=== PATIENT | male | born 1940 ===

== ENCOUNTER 2017-07-13 10:49 | Inpatient (IN) | payer MEDICARE, OTHER ==
[2017-07-13] MEDS ORDERED: NS 0.9% 1000 ML* 1,000 ML IV ONE (10:50)
[2017-07-13] MEDS ORDERED: Metoprolol Tartrate IV* 1 MG/ML 5 ML VIAL IV ONE ×4 (10:57→11:43)
[2017-07-13] MEDS ORDERED: niCARdipine 0.1MG/ML IVPREMIX* 20 MG/200 ML BAG IV SCH (11:00)
[2017-07-13] MEDS ORDERED: Alteplase* 100 MG VIAL ONE (11:09)
[2017-07-13] MEDS ORDERED: Iodixanol* (CONTRAST) 320 MG/ML 100 ML SDV IV ONE (11:14)
[2017-07-13] MEDS ORDERED: Metoprolol Tartrate IV* 1 MG/ML 5 ML VIAL ONE ×2 (11:29→11:39)
[2017-07-13] MEDS ORDERED: Alteplase* 100 MG VIAL IV ONE ×2 (11:31)
[2017-07-13] MEDS ORDERED: NICARDIPINE ONE (11:31)
[2017-07-13 11:43] LABS: ABS Basophils 0.1 10^3/ul (0-0.2); ABS Eosinophils 0 10^3/ul (0-0.6); ABS Lymphocytes 0.9 10^3/ul (1.0-4.8); ABS Monocytes 0.5 10^3/ul (0-0.8); ABS Nucleated RBC 0 10^3/ul; Eosinophil % 0.2 % (0-6); Hematocrit 51 % (42-52); Hemoglobin 17.4 g/dl (14.0-18.0); Lymphocyte % 10.6 % (25-47); Mean Corpuscular HGB Conc 34 g/dl (31-36); Mean Corpuscular Hemoglobin 30 pg (27-31); Mean Corpuscular Volume 89 fL (80-94); Mean Platelet Volume 6.9 um3 (7.4-10.4); Nucleated Red Blood Cells % 0; Platelet Count 199 10^3/ul (150-450); Red Blood Count 5.79 10^6/ul (4.0-5.4); Red Cell Distribution Width 14 % (10.5-15); White Blood Count 8.5 10^3/ul (3.5-10.8)
--- NOTE | 2017-07-13 11:43 | RAD ---
Indication: Left hemiparesis. Contrast: Administered 80.1 ml of VISIPAQUE 320 mg/ml CTA of the neck and head was performed after IV contrast administration. Coronal and sagittal reconstructed images were obtained. Noncontrast CT of the head was also performed. Ventricular structures are midline. No midline shift is noted. Periventricular lucency consistent with chronic ischemic White matter change is noted. No intracranial mass or hemorrhage is noted. The aortic arch demonstrates atherosclerosis in the descending aorta. Left common carotid artery demonstrates no intimal wall thickening. Right common carotid artery demonstrates no intimal wall thickening. Calcific plaque is noted in the left internal carotid artery origin. Less than 50% stenosis is identified. Minimal calcific plaque is noted in the right carotid bulb with less than 50% stenosis. The internal carotid arteries in the neck demonstrates tortuous proximal internal carotid artery. No evidence of branch occlusion is noted. No aneurysmal dilatation is noted. No evidence of carotid artery dissection is noted. The vertebral arteries demonstrate right vertebral artery to be unremarkable. There may be a stenosis at the ostia of the left vertebral artery. No evidence of vertebral artery dissection is noted. The intracranial circulation demonstrates intracavernous portion of the internal carotid arteries to be unremarkable. The anterior and middle cerebral arteries are unremarkable. The basilar artery and posterior cerebral arteries are unremarkable. No branch occlusion is identified. No evidence of branch occlusion or aneurysmal dilatation is noted in the anterior or posterior circulation. The lung apices are otherwise unremarkable. Evaluation of the soft tissues of the neck demonstrates no significant adenopathy. Multiple periapical abscesses are noted in the remaining dentition. IMPRESSION: There is atherosclerosis of the descending thoracic aorta at the level of the aortic arch. Atherosclerosis is noted in the carotid bulb bilaterally. The origin of left vertebral artery is not well demonstrated and a stenosis at the origin of the left vertebral artery cannot BE excluded. No evidence of internal carotid artery stenosis or dissection is noted. Intracranial circulation demonstrates no evidence of aneurysmal dilatation or branch occlusion.
[2017-07-13 11:56] LABS: INR 0.95 (0.77-1.02)
[2017-07-13 11:58] LABS: EGFR Non-African American 54.5 (>60)
--- NOTE | 2017-07-13 12:18 | RAD ---
Indication: Neurologic changes. Single frontal view of the chest performed at 1200 hours was reviewed. No prior study is available for comparison. No mediastinal shift is noted. Heart is of normal size and configuration. Lung harrison appear clear. IMPRESSION: NO ACTIVE CARDIOPULMONARY DISEASE IS NOTED.
[2017-07-13 12:25] LABS: Urine Appearance Clear; Urine Blood 1+ (Negative); Urine Color Straw; Urine Ketones Negative (Negative); Urine Protein Negative (Negative); Urine Urobilinogen Negative (Negative)
[2017-07-13] MEDS ORDERED: Acetaminophen TAB* 325 MG PO PRN (13:41)
[2017-07-13] MEDS ORDERED: Magnesium Hydroxide LIQ* 30 ML UDC PO PRN (13:42)
--- NOTE | 2017-07-13 14:06 | HP ---
H&P (Free Text) History and Physical: CRITICAL CARE MEDICINE DATE: 07/13/17 TIME: 1330 PRIMARY CARE PROVIDER: None - has not been to providers in probably 30 years REFERRING PROVIDER: Joaquin REASON/CHIEF COMPLAINT: cva s/p tpa HISTORY OF PRESENT ILLNESS: 76 M who lives with girlfriend was in his yard today and felt as if his left knee was giving out. GF called pts son who came to see pt as he was refusing to seek attention after then falling with inability to stand up. May have fallen 3 times from report I got. Was seen by neurology in ED and underwent cva workup with tpa given. BP had been high and was blunted with doses of metoprolol and then started on nicardipine gtt. NIH went from 4 to 1 from reports. CTA without signs of vessel occlusions. ICU asked to admit for his continued care needs. REVIEW OF SYSTEMS: As per HPI. Pt denies fever, chills, weight changes, sob, cough, cp, abd pain (does admit to chronic abd hernia), bowel or swallowing issues, dysuria, or usual difficulties with ambulation or speech. PAST MEDICAL HISTORY: As per HPI but has not been to providers "in decades" per family. He is obese, oa with left knee surgery decades ago, umbilical hernia, and likely htn, ckd 3 sec to uncontrolled htn and underlying atherosclerotic disease. MEDICATIONS: No outpt rx, but takes aspirin once in awhile for pain, and took 81mg last pm. ALLERGIES: NKDA SOCIAL HISTORY: Reviewed. lives with gf. retired from [employer]. denies tob, quit social etoh many years ago FAMILY HISTORY: Noncontributory at present. PHYSICAL EXAM: Vital Signs: Reviewed. Neurologic: awake, communicating, nonfocal on exam. no drift. HEENT: only 2 poorly kept teeth left, mmm, tongue midline., no bruits. Cardiovascular: reg, s1, s2 Respiratory: ctab Abdomen: obese, midline umbilical hernia Extremities: warm, no edema; scarring of left knee Access: piv LABS: Reviewed. IMAGING: Reviewed. MEDICATIONS: Reviewed. ASSESSMENT: 76 M CVA s/p tpa with improvement HTN urgency Underlying uncontrolled htn CKD 3 Risk factor/medical workup needed PLAN: Neurologic: neurology has evaluated and post tpa now with improvement. standards of care. order mri. ct tomorrow. likely asa from there but can allow neuro to f/u plans. icu post tpa neurochecks. Cardiovascular: perfusing. vol status ok but post iv dye and htn uncontrolled. receiving some fluid with cardene gtt currently. add norvasc and see if we can come off gtt while keeping sbp about 140-170 for now. will need further htn workup and outpt rx needs and provider for such. cva tte workup. lipds. Respiratory: lucian fine. no o2 needs. no distress. Gastrointestinal: bedside swallow eval and then ok for diet. recommend outpt dental appt. Renal/Metabolic: f/u renal function tomorrow and uout. Infectious Disease: no abx need Hematology: stable. hold off on antiplt till post 24h Endocrine: f/u Hba1c Musculoskeletal: pt eval as needed for cva Psych/Social: family at bedside and pt expressed understanding of plans. social eval and outpt provider set up, rx etc. Supportive and preventative care as ordered. Vaccine: f/u his desire and needs SUP: po VTE prophylaxis: scds Disposition: ICU overnight Code Status: Full Critical Care Time: 45min FBolivar Desai DO
[2017-07-13] MEDS: amLODIPine TAB* 5 MG PO SCH (15:01)
[2017-07-13] MEDS ORDERED: Perflutren Lipid Microsphere* 3 ML VIAL ONE (15:32)
[2017-07-13] MEDS: niCARdipine 0.1MG/ML IVPREMIX* 20 MG/200 ML BAG IV SCH (17:41)
--- NOTE | 2017-07-13 18:43 | ECHO ---
Patient: ОЛЕГ HOLT [facility] Rec#: [id number] : 1940 Date: 07/13/2017 Age: 76y Height: 172.72 cm / 68.0 in Weight: 97.07 kg / 213.9 lbs Sex: M BSA: 2.1 Room#: ICU-3 Admit Date#: 07/13/2017 Type: Inpatient Referring: Eugenio Desai Reading: Shekhar Carrion MD Banquet Chef: Tina Turner RDCS Transthoracic Echocardiogram Indication: CVA BP: 166/80 HR: 86 Rhythm: NSR Findings History: CVA with tPA rx today. No medical care in decades per patient, obesity, CKD stage III,HTN. Technical Comments: The study is technically limited due to patient body habitus. Completed at 1628. Left Ventricle: The left ventricular chamber size is normal. Moderate concentric left ventricular hypertrophy is observed. There is a prominent septal knuckle. The left ventricle appears hyperdynamic. The estimated ejection fraction is 60-65%. Abnormal left ventricular diastolic function is observed. Abnormal left ventricular diastolic filling is observed, consistent with impaired relaxation. Left Atrium: The left atrium is mildly dilated. Right Ventricle: The right ventricular cavity size is normal. The right ventricular global systolic function is normal. Right Atrium: The right atrial cavity size is normal. Aortic Valve: The aortic valve is trileaflet. There is no evidence of aortic valve thickening. There is mild aortic regurgitation. There is no evidence of aortic stenosis. Mitral Valve: The mitral valve leaflets are mildly thickened. There is no evidence of mitral regurgitation. There is no evidence of mitral stenosis. Tricuspid Valve: The tricuspid valve leaflets are normal. There is no evidence of tricuspid valve regurgitation. Unable to estimate the right ventricular systolic pressure. There is no tricuspid stenosis. Pulmonic Valve: There is no evidence of pulmonic regurgitation. There is no pulmonic stenosis. Pericardium: A pericardial fat pad is visualized. Aorta: There is moderate dilatation of the ascending aorta. The aortic arch is not well visualized. There is moderate dilatation of the aortic root. Pulmonary Artery: The main pulmonary artery appears normal. Venous: The venous system is not well visualized. Contrast: Definity was used to optimize study. A total of 4.5 ml used. Intravenous contrast was used to enhance endocardial border definition. Summary: There was not any prior study for comparison. Conclusions Moderate concentric left ventricular hypertrophy is observed. The left ventricle appears hyperdynamic. Abnormal left ventricular diastolic filling is observed, consistent with impaired relaxation. The left atrium is mildly dilated. There is mild aortic regurgitation. There is moderate dilatation of the ascending aorta. There is moderate dilatation of the aortic root. Measurements Name Value Normal Range RVIDd (AP) 2D 2.1 cm (0.9 - 2.6) RVDdMajor (2D) 3.2 cm (2.2 - 4.4) RAd ISD 4CH 4.8 cm (3.4 - 4.9) RA (A4C)W 3 cm (2.9 - 4.6) IVSd (2D) 1.5 cm (0.6 - 1) LVPWd (2D) 1.5 cm (0.6 - 1) LVIDd (2D) 3.9 cm (3.6 - 5.4) LVIDs (2D) 2.6 cm - LV FS (2D) 33 % (25 - 45) Aortic Annulus 2.1 cm (1.4 - 2.6) Ao root diameter (2D) 4.3 cm (2.1 - 3.5) Ascending Ao 4.2 cm (2.1 - 3.4) LA dimension (AP) 2D 3.9 cm (2.3 - 3.8) LAd ISD 4CH 4.7 cm (2.9 - 5.3) LA ISD 4CH W 3.6 cm (2.5 - 4.5) Name Value Normal Range LA ESV SP 4CH (A/L) 24 ml - LA ESV SP 2CH (A/L) 49 ml - LA ESV BP (A/L) 40 ml - LA ESV BP (A/L) index 19.1 ml/m2 - LA ESV SP 4CH (MOD) 21 ml - LA ESV SP 2CH (MOD) 46 ml - Name Value Normal Range MV E-wave Vmax 0.8 m/sec - MV deceleration time 116 msec - MV A-wave Vmax 1.2 m/sec - MV E:A ratio 0.7 ratio - LV septal e' Vmax 0.05 m/sec - LV lateral e' Vmax 0.13 m/sec - LV E:e' septal ratio 16 ratio - LV E:e' lateral ratio 6.15 ratio - Name Value Normal Range AV Vmax 1.6 m/sec - AV VTI 26.8 cm - AV peak gradient 10.18 mmHg - AV mean gradient 3.93 mmHg - LVOT Vmax 1.2 m/sec - LVOT VTI 21.9 cm - LVOT peak gradient 5.34 mmHg - LVOT mean gradient 2.46 mmHg - AR PHT 371 msec - AR peak gradient 16.81 mmHg - Name Value Normal Range PV Vmax 1.4 m/sec - PV peak gradient 7.41 mmHg -
--- NOTE | 2017-07-13 21:16 | RAD ---
HISTORY: MRI clearance. COMPARISON: None. FINDINGS: Frontal and lateral views of the orbits. There is no radiopaque foreign body attributable to the orbits. The orbital rims are intact. The sinuses are clear. The zygomatic arches are normal. IMPRESSION: No radiopaque foreign body attributable to the orbits.
--- NOTE | 2017-07-13 22:14 | RAD ---
HISTORY: Left facial droop and left leg weakness COMPARISONS: None TECHNIQUE: The following sequences were obtained of the head: Sagittal T1-weighted images, axial T2-weighted images, axial FLAIR images, axial susceptibility weighted images, axial T1-weighted images. Additionally, axial diffusion-weighted images were obtained with calculated apparent diffusion coefficients.. FINDINGS: HEMORRHAGE/INFARCT: There is focal increased signal measuring 5 mm at the right thalamus. MASSES/SHIFT: There is no mass or shift. EXTRA-AXIAL SPACES/MENINGES: There are no extra-axial fluid collections. SULCI AND VENTRICLES: There are symmetrical involutional changes bilaterally. CEREBRUM: 5 mm hyperattenuating focus on diffusion-weighted imaging at the right thalamus is consistent with a focal infarction. This corresponds to a focus of increased signal on FLAIR imaging. On T2-weighted imaging there is diffuse periventricular and subcortical white matter increased signal. BRAINSTEM: There are no focal parenchymal abnormalities. CEREBELLUM: There are no focal parenchymal abnormalities. The cerebellar tonsils are normal in size and position. SELLA: The sella is normal. PINEAL: The pineal region is clear. CP ANGLE/TEMPORAL BONES: The labyrinthine structures are grossly normal. VESSELS: Normal flow-voids are noted within the visualized vertebral vasculature. DIFFUSION ABNORMALITIES: There are no diffusion abnormalities. PARANASAL SINUSES/MASTOIDS: There is dependent layering fluid at the left maxillary sinus. ORBITS: The orbits are unremarkable. BONES AND SOFT TISSUE: No bone or soft tissue abnormalities are noted. IMPRESSION: THERE IS EVIDENCE OF A NEW 5 MM FOCAL INFARCTION AT THE RIGHT THALAMUS ON A BACKGROUND OF CHRONIC MICROVASCULAR DISEASE AND INVOLUTIONAL CHANGES.
--- NOTE | 2017-07-13 22:41 | CONS ---
NEUROLOGY CONSULTATION REPORT: DATE OF CONSULT: 07/13/17 CONSULTING PHYSICIAN: Dr. Jose Nuñez. REASON FOR CONSULT: Neurology was consulted for evaluation of stroke. Code Alexis was activated. CHIEF COMPLAINT: Left-sided weakness. HISTORY OF PRESENT ILLNESS: Mr. Kahlil Lanier is a 76-year-old right-handed man , who had left-sided weakness that started at 8-8:15 a.m. this morning. The patient woke up at 6 o'clock in normal state of health. At 7:30, he was last seen normal by his spouse. Other than complaining of bilateral knee pain and his usual imbalance due to knee pain, he had no focal deficits. The patient was feeding the birds and cats when suddenly he fell. He did not hit his head. He did not lose consciousness. He then tried to get up, but he was having trouble standing. This was at 8:15 a.m. He called out for his who contacted EMS. The spouse reported that the patient has chronic memory problems and keeps repeating himself. This has been going on for over 6 months. The patient denied any headaches, visual disturbance, or swallowing difficulty. He does endorse gait imbalance since this morning after he had awaken. There was reported fall yesterday, but the family stated that the patient typically falls due to knee pain. This was not unusual for him. He typically is able to stand up and get himself up after a fall. This was not the case this morning. The patient is aspirin naive. The patient has not seen a physician for over 30 years. NIH Stroke Scale: Last known well time 7:30 a.m., time of onset 8 a.m., stroke call was activated at 10:50 a.m., I assessed the patient at 10:55 a.m., decision to proceed with tPA 11:30 a.m., tPA was not given immediately given the patient's uncontrolled blood pressure despite treating him with metoprolol, labetalol 10 mg, labetalol 5 mg, and then eventually starting him on a nicardipine drip which brought down his blood pressure within the recommended range for IV tPA which was approximately 177/89 at that time. NIH Stroke Scale score was 6 for left facial droop 1, left arm drift 1, left leg drift 2, limb ataxia on the left due to motor ataxia 1, and lastly dysarthria 1. NIH Stroke Scale was taken at 10:55 a.m. PAST MEDICAL HISTORY: The patient has reported untreated hypertension. PAST SURGICAL HISTORY: He has history of arthroscopy in the knees. MEDICATIONS: He is not taking any medications at home. ALLERGIES: No known drug allergies. FAMILY HISTORY: He denied any family history of stroke or seizures. SOCIAL HISTORY: The patient is retired. He used to smoke pipe, but stopped more than 3 years ago. He denied alcohol use. He lives with his spouse. REVIEW OF SYSTEMS: A 14-point review of systems was obtained and otherwise negative except for what was mentioned in the HPI. PHYSICAL EXAM: Vitals: Currently pulse of 86, respiratory rate of 21, oxygen saturation 94% on room air, blood pressure 177/103. General: Well-nourished, well- developed overweight man, in no acute distress. He is very pleasant. Head: Normocephalic without obvious abnormalities. Atraumatic. Eyes: Conjunctivae/corneas are clear. Neck: Supple and symmetrical. No carotid bruit. Lungs are clear to auscultate bilaterally. Nonlabored breathing. Cardiovascular: Regular rhythm. Normal S1, S2. Radial pulses are palpable. Extremities: Normal range of motion with no cyanosis. No hammertoes or high arches. Skin: No skin lesions or lacerations. Psych: Affect is broad and normal mood. He is easy to establish rapport. Mental Status: Awake, alert, and oriented to person, place, time, and general circumstances. He has mild spastic dysarthria. Cranial Nerves: Normal confrontation bilaterally. Pupils are mid range and reactive to light. Normal consensual response. Extraocular muscles are intact. Sensation is intact on forehead, cheeks, and jaw region bilaterally. He has a left facial droop. He is able to hear throughout the history process. Symmetric palatal elevation. There is normal strength against resistance for shoulder shrug. Tongue is symmetrical and midline with no atrophy. Motor: No abnormal movement. Positive for pronator drift on the left upper extremity. He has got normal bulk and tone throughout. No fasciculation. Shoulder abduction is 5 on the right and 4 on the left. Elbow flexion 5 on the right and 4 on the left as well as elbow extension 5/4. Otherwise, 5/5 throughout the upper and lower extremities except for 4/5 in the left hip flexion. Reflexes: Right/left, brachioradialis 2/2, biceps 2/2, triceps 2/2, patella 1/1, ankle 0/0, plantar flexor/flexor. He has external rotation of the left lower extremity. Sensation is intact to light touch throughout. Normal vibration and proprioception at the great toes. Coordination: He has got motor dysmetria on the left upper extremity. He has reduced rapid alternative movements on the left. Gait and station: He was falling towards the left side when he stood up to measure his weight. The patient's weight is 260 pounds. DIAGNOSTIC STUDIES/LAB DATA: Laboratory finding: WBC of 8.5, hemoglobin of 17 , hematocrit of 51, platelets of 199. INR of 0.95, aPTT of 30. Sodium of 139, potassium 3.6, chloride 108, carbon dioxide 24, BUN is 16, creatinine is 1.28, lactic acid is 2.1, glucose is 101. The patient had Accu-Chek of 89 upon arrival. Urinalysis shows no evidence of dysuria. Head CT without contrast showed no evidence of acute intracranial process. He has a small hypodensity in the left basal ganglia region. This is suggestive of an old lacunar infarct. The CTA was personally reviewed by me. There is atherosclerosis of the descending thoracic aorta at the level of the aortic arch. There is atherosclerosis noted at the carotid bulb bilaterally. The origin of the left vertebral artery was not well demonstrated and stenosis at the origin of the left vertebral artery cannot be excluded. There is no evidence of internal carotid artery stenosis or dissection. Intracranial circulation demonstrates no evidence of aneurysm, dilatation, or branch occlusion. There is decreased flow of the left vertebral artery that I saw, but there is a prominent right vertebral artery. ASSESSMENT: 1. Mr. Kahlil Lanier is a 76-year-old man, who has not seen a primary care physician for decades, who presented with acute-onset slurred speech, left hemiparesis, and fall. I suspect the patient is having lacunar stroke involving the right lenticulostriate branches or the right pontine perforators given his extremely elevated blood pressure upon arrival. The mechanism of stroke probably small vessel distal occlusion due to chronic hypertension that is untreated. Risk factors, age and hypertension, NIH Stroke Scale of 6. He was deemed a candidate for IV tPA. The patient received tPA within 60 minutes of arrival, but unfortunately within a 4-1/2-hour window. The delay in tPA was due to trying to control his blood pressure as it was significantly elevated upon presentation. He is not a candidate for mechanical thrombectomy given that he has no large vessel occlusion on CTA. 2. Hypertensive emergency. 3. Mild cognitive impairment so stated by family members. The patient is at risk for vascular dementia. RECOMMENDATION: The patient received IV tPA within the 4-1/2-hour window, within 60 minutes of arrival to our emergency department. Admit to the MICU for close post tPA monitoring for the next 24 hours. Please use the post tPA vitals and neuro checks as recommended for which he will be receiving frequent q.15-minute neuro check for the next few hours, please use the protocol as documented. Please order an MRI of the brain without contrast. This can be done 24 hours from the time of the tPA; this way, we do not have to do a repeat CT in 24 hours. Please order a 2D transthoracic echo to evaluate for any source of thrombus. Place the patient on telemetry to evaluate for arrhythmias. Lipid panel was obtained and his LDL was elevated at 141 with total cholesterol of 211. Please start high-intensity atorvastatin 80 mg nightly. Please obtain vitamin B12 and hemoglobin A1c as well as a TSH. Hold all antiplatelet and anticoagulation for 24 hours. SCDs for DVT prophylaxis. He is not a candidate for anticoagulation therapy because there is no known atrial fibrillation yet that has been discovered. Keep up permissive blood pressure control, but treat systolic blood pressure greater than 180 or diastolic blood pressure greater than 110. Please consult PT/OT/FULLERETTE to evaluate and treat. Bedside swallow evaluation needs to be done. We discussed secondary stroke measures with the family. Do not place the urinary catheter unless there is evidence of urinary retention. Before administrating tPA, I personally discussed the risks and benefits to tPA therapy. I informed the patient's family as well as both kids, Gerald and Felix, that Mr. Kahlil Lanier is having stroke and tPA is given to hopefully dissolve the blockage. There are risks for this procedure, which include bleeding in the brain 6.4%, allergic reaction, coma, or (3%). Probability of success with the procedure, the blockage dissolved and blood flow is restored in 30% increasing the chance of minimal or no disability from stroke within 3 months and/or full recovery. We discussed alternative to the procedure which is treatment with oxygen and IV fluids and that the prognosis, if the tPA is not done, possibly if the condition worsening and more permanent damage or even . I informed them that the Federal Drug Administration and the package insert from the drug family life counselor indicate that tPA treatment should be administered within 3 hours after the onset of the stroke. However, the [place] [employer] recently indicated that tPA is useful/effective/ beneficial if administered to eligible patients who can be treated in the time period of 3 to 4-1/2 from the onset of the stroke. The patient and the patient' s family consented to the IV tPA within the 4-1/2 hours and we proceeded with the infusion. All questions were answered to the best of my abilities. [id number]/[facility] #: [id number] [facility]
[2017-07-14] MEDS: niCARdipine 0.1MG/ML IVPREMIX* 20 MG/200 ML BAG IV SCH ×3 (00:28→12:29)
[2017-07-14] MEDS: amLODIPine TAB* 5 MG PO SCH (08:02)
[2017-07-14 09:48] LABS: Hematocrit 47 % (42-52); Hemoglobin 16.3 g/dl (14.0-18.0); Mean Corpuscular HGB Conc 35 g/dl (31-36); Mean Corpuscular Hemoglobin 31 pg (27-31); Mean Corpuscular Volume 89 fL (80-94); Platelet Count 146 10^3/ul (150-450); Red Blood Count 5.31 10^6/ul (4.0-5.4); Red Cell Distribution Width 14 % (10.5-15)
[2017-07-14 10:12] LABS: EGFR Non-African American 78.8 (>60)
--- NOTE | 2017-07-14 12:44 | RAD ---
Indication: Ischemic stroke post TPA. Follow-up. Comparison: July 13, [address] Technique: Noncontrast CT vertex of skull through foramen magnum. Report: No intra or extra-axial hemorrhage evident. Mild prominence of the cerebral sulci reflecting atrophy. Proportional mild enlargement of the ventricles. Patent basal cisterns. Decreased density in the periventricular and subcortical white matter while non-specific is most likely due to chronic microangiopathy. Negative for lara matter white matter obscuration. Unremarkable orbital contents. No suspicious abnormality of the calvarium or skull base. Mucosal thickening at the floor of the LEFT maxillary sinus. Unremarkable scalp. IMPRESSION: No evidence for intracranial hemorrhage post TPA. Negative for mass effect. Mild involutional change and stigmata of chronic small vessel ischemic disease.
[2017-07-14] MEDS: Aspirin EC TAB* 81 MG TAB.EC PO SCH (14:51)
[2017-07-14] MEDS: Lisinopril TAB* 10 MG PO SCH (14:51)
[2017-07-14] MEDS: Atorvastatin* 20 MG TAB PO SCH (17:12)
--- NOTE | 2017-07-14 17:31 | PN ---
Subjective Date of Service: 07/14/17 Interval History: Mr. Holt was seen and examined earlier today. Reports feeling much better, wants to go home. Denies any left sided weakness, numbness or visual changes. Had his 24-hours post tPA head CT with no evidence of bleeding. His BP fluctuates, but seems to be well controlled with calcium channel tim drip. Patient has no complaints. Spoke with Dr. Desai earlier, patient may be transferred later this afternoon to telemetry. Drip will be d/c'ed to initiate PO agents to control BP. Seen by neurology for consultation as well. Family History: Unchanged from Admission Social History: Unchanged from Admission Past Medical History: Unchanged from Admission Objective Active Medications: Acetaminophen (Tylenol Tab*) 650 mg PO Q6H PRN PRN Reason: FEVER/PAIN Amlodipine Besylate (Norvasc Tab*) 10 mg PO DAILY [facility] Last Admin: 07/14/17 08:02 Dose: 10 mg Aspirin (Aspirin Ec Tab*) 81 mg PO DAILY [facility] Last Admin: 07/14/17 14:51 Dose: 81 mg Atorvastatin Calcium (Lipitor*) 20 mg PO 1700 [facility] Last Admin: 07/14/17 17:12 Dose: 20 mg Lisinopril (Prinivil Tab*) 10 mg PO DAILY [facility] Last Admin: 07/14/17 14:51 Dose: 10 mg Magnesium Hydroxide (Milk Of Magnaurelio Liq*) 30 ml PO Q6H PRN PRN Reason: DYSPEPSIA Vital Signs - 8 hr 07/14/17 07/14/17 07/14/17 09:31 09:45 10:00 Temperature Pulse Rate 103 98 99 Respiratory 14 22 23 Rate Blood Pressure 168/95 150/80 (mmHg) O2 Sat by Pulse 96 96 97 Oximetry 07/14/17 07/14/17 07/14/17 10:01 10:15 10:30 Temperature Pulse Rate 93 97 111 Respiratory 21 24 Rate Blood Pressure 146/82 167/93 158/100 (mmHg) O2 Sat by Pulse 95 96 97 Oximetry 07/14/17 07/14/17 07/14/17 10:45 11:00 11:01 Temperature Pulse Rate 100 99 101 Respiratory 16 20 20 Rate Blood Pressure 148/80 119/76 (mmHg) O2 Sat by Pulse 97 97 98 Oximetry 07/14/17 07/14/17 07/14/17 11:16 11:30 11:45 Temperature Pulse Rate 107 97 100 Respiratory 23 20 24 Rate Blood Pressure 117/82 154/86 151/89 (mmHg) O2 Sat by Pulse 97 98 98 Oximetry 07/14/17 07/14/17 07/14/17 12:00 12:23 12:30 Temperature 98.1 F Pulse Rate 99 100 99 Respiratory 20 21 20 Rate Blood Pressure 139/97 161/82 155/87 (mmHg) O2 Sat by Pulse 97 97 97 Oximetry 07/14/17 07/14/17 07/14/17 12:45 13:00 14:00 Temperature Pulse Rate 96 96 97 Respiratory 30 21 19 Rate Blood Pressure 141/80 146/84 (mmHg) O2 Sat by Pulse 97 97 97 Oximetry 07/14/17 07/14/17 07/14/17 14:14 14:15 14:30 Temperature Pulse Rate 97 98 94 Respiratory 25 21 35 Rate Blood Pressure 126/73 134/83 162/78 (mmHg) O2 Sat by Pulse 97 97 96 Oximetry 07/14/17 07/14/17 07/14/17 14:45 15:00 15:01 Temperature Pulse Rate 99 95 91 Respiratory 23 20 22 Rate Blood Pressure 164/86 155/78 (mmHg) O2 Sat by Pulse 97 98 97 Oximetry 07/14/17 07/14/17 07/14/17 15:30 16:00 16:30 Temperature 98.3 F Pulse Rate 89 95 Respiratory 19 18 17 Rate Blood Pressure 174/77 186/93 (mmHg) O2 Sat by Pulse 97 97 Oximetry 07/14/17 07/14/17 07/14/17 17:00 17:01 17:02 Temperature Pulse Rate 100 97 98 Respiratory 23 19 24 Rate Blood Pressure 175/100 176/91 (mmHg) O2 Sat by Pulse 97 98 98 Oximetry Oxygen Devices in Use Now: None Appearance: Appears comfortable and in NAD Eyes: No Scleral Icterus, PERRLA Ears/Nose/Mouth/Throat: Clear Oropharnyx, Mucous Membranes Moist, - - Slight left sided facial droop noted. 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 Contrast: Administered 80.1 ml of VISIPAQUE 320 mg/ml IMPRESSION: There is atherosclerosis of the descending thoracic aorta at the level of the aortic arch. Atherosclerosis is noted in the carotid bulb bilaterally. The origin of left vertebral artery is not well demonstrated and a stenosis at the origin of the left vertebral artery cannot BE excluded. No evidence of internal carotid artery stenosis or dissection is noted. Intracranial circulation demonstrates no evidence of aneurysmal dilatation or branch occlusion. TTE with following Conclusions: Moderate concentric left ventricular hypertrophy is observed. The left ventricle appears hyperdynamic. Abnormal left ventricular diastolic filling is observed, consistent with impaired relaxation. The left atrium is mildly dilated. There is mild aortic regurgitation. There is moderate dilatation of the ascending aorta. There is moderate dilatation of the aortic root. Patient Name: ОЛЕГ HOLT Medical Record#: [id number] Ordering Physician: Eugenio Desai DO Acct.#: [id number] : 1940 Age: 76 Sex: M Location: INTENSIVE CARE UNIT Exam Date: 07/13/17 1337 ADM Status: ADM IN Order Information: MRI BRAIN W/O Accession Number: [id number] CPT: 89903 HISTORY: Left facial droop and left leg weakness COMPARISONS: None IMPRESSION: THERE IS EVIDENCE OF A NEW 5 MM FOCAL INFARCTION AT THE RIGHT THALAMUS ON A BACKGROUND OF CHRONIC MICROVASCULAR DISEASE AND INVOLUTIONAL CHANGES. <Electronically signed by Dav Dyson MD in [place]> 07/13/172210 Dictated By: Dav Dyson MD Dictated Date/Time: 07/13/172210 Transcribed Date/Time: 07/13/172204 Copy to: Assess/Plan/Problems-Billing Assessment: A 76 y/o male who presented to ED with sudden onset of left sided facial droop and weakness, found to have a CVA, s/p tPA, admitted to ICU for close monitoring , with neurological improvement noted, also with underlying uncontrolled and untreated HTN - Patient Problems (1) CVA (cerebral vascular accident) Current Visit: Yes Status: Acute Priority: High Comment: - Neurology consult appreciated - Now s/p tPA, improvement noted, continue neurological checks q4 hrs - Passed swallowing evaluation, resume regular diet - PT/OT starting in AM - Transfer to Tele this PM - Supportive care - ASA 81 mg and Lipitor 20mg daily started (2) Hypertension Current Visit: Yes Status: Acute Comment: - Seems to be better controlled - Off his Ca channel tim drip - Continue Amlodipine and Lisinopril PO (3) DVT prophylaxis Current Visit: Yes Status: Acute Comment: - SCDs for time being (4) Full code status Current Visit: Yes Status: Acute Status and Disposition: Inpatient. Anticipate discharge when medically stable.
--- NOTE | 2017-07-14 20:59 | CONS ---
NEUROLOGY FOLLOWUP NOTE: DATE OF FOLLOWUP: 07/14/17 LOCATION: He is in the intensive care unit, bed 3. HOSPITALIST: MINERVA Yoon CHIEF COMPLAINT: Left-sided weakness. INTERVAL HISTORY: Since yesterday, Mr. Lanier feels well. He said he had difficulty walking yesterday and that is why he came in. He denies problems with his upper extremities or any numbness of his face or change in vision. His MRI of the brain was reviewed. There is an area of brightness on diffusion- weighted imaging in the right border between the posterior limb of the internal capsule and the thalamus. There are some chronic ischemic changes, which are fairly abundant as well. Brain CT today did not reveal any discrete infarctions and no hemorrhages. Transthoracic echocardiogram yesterday revealed some hypertensive changes, but no other significant abnormalities. He has been in sinus rhythm. CT angiogram from yesterday did not reveal any significant intracranial or extracranial stenosis. There was a possibility of stenosis near the origin of the left vertebral artery. MEDICATIONS: Reviewed and he is now on: 1. Atorvastatin 20 mg p.o. q. day. 2. Aspirin 81 mg p.o. q. day. 3. Amlodipine 10 mg p.o. q. day. 4. Lisinopril 10 mg p.o. q. day. 5. Magnesium hydroxide q.6 hours p.r.n. PHYSICAL EXAM: He is overweight. Blood pressure 174/77 most recently, temperature 98.1, heart rate in the 80s to 90s and regular. Respiratory rate 20 , oxygen saturation is 97%. Facial musculature is symmetric. Speech is clear. Eye movements are full. He has a mild left pronator drift. He has mild clumsiness with left hand taps. He has mild leg drift in the left. He has normal strength in the right. Language is fluent. IMPRESSION AND PLAN: Impression is that of a small vessel infarction in the right lenticulostriate region. He was not on any medical therapies and has multiple vascular risk factors. I agree with his current antihypertensive regimen, statin, and aspirin. Dual antiplatelet therapy could be considered for 30 days, but I would not start it now just 24 hours after his tPA. Physical Therapy will assess him tomorrow and I will follow up as well. I explained the situation and results of the studies to Mr. Lanier and his . [id number]/[facility] #: [id number] UMA
[2017-07-15 06:05] LABS: ABS Basophils 0 10^3/ul (0-0.2); ABS Eosinophils 0.1 10^3/ul (0-0.6); ABS Lymphocytes 1.4 10^3/ul (1.0-4.8); ABS Monocytes 0.8 10^3/ul (0-0.8); ABS Neutrophils 5.2 10^3/ul (1.5-7.7); ABS Nucleated RBC 0 10^3/ul; Eosinophil % 1.9 % (0-6); Hematocrit 50 % (42-52); Hemoglobin 17.1 g/dl (14.0-18.0); Lymphocyte % 18.1 % (25-47); Mean Corpuscular HGB Conc 34 g/dl (31-36); Mean Corpuscular Hemoglobin 30 pg (27-31); Mean Corpuscular Volume 88 fL (80-94); Mean Platelet Volume 6.7 um3 (7.4-10.4); Nucleated Red Blood Cells % 0.1; Platelet Count 188 10^3/ul (150-450); Red Blood Count 5.62 10^6/ul (4.0-5.4); Red Cell Distribution Width 14 % (10.5-15); White Blood Count 7.6 10^3/ul (3.5-10.8)
[2017-07-15 06:21] LABS: EGFR Non-African American 68.5 (>60)
[2017-07-15] MEDS: Aspirin EC TAB* 81 MG TAB.EC PO SCH (07:31)
[2017-07-15] MEDS: amLODIPine TAB* 5 MG PO SCH (07:31)
[2017-07-15] MEDS: Lisinopril TAB* 10 MG PO SCH (07:31)
--- NOTE | 2017-07-15 13:16 | PN ---
Subjective Date of Service: 07/15/17 Interval History: Patient was seen and examined at bedside. Reports feeling better overall. Had his PT eval, ambulated with a walker, felt a little unsteady, but denies progressive weakness, numbness or visual changes. He was transferred from ICU to [facility] earlier this AM. Eating his lunch, denies dysphagia or choking sensation. He has no complaints today. Family History: Unchanged from Admission Social History: Unchanged from Admission Past Medical History: Unchanged from Admission Objective Active Medications: Acetaminophen (Tylenol Tab*) 650 mg PO Q6H PRN PRN Reason: FEVER/PAIN Amlodipine Besylate (Norvasc Tab*) 10 mg PO DAILY [facility] Last Admin: 07/15/17 07:31 Dose: 10 mg Aspirin (Aspirin Ec Tab*) 81 mg PO DAILY [facility] Last Admin: 07/15/17 07:31 Dose: 81 mg Atorvastatin Calcium (Lipitor*) 20 mg PO 1700 [facility] Last Admin: 07/14/17 17:12 Dose: 20 mg Lisinopril (Prinivil Tab*) 10 mg PO DAILY [facility] Last Admin: 07/15/17 07:31 Dose: 10 mg Magnesium Hydroxide (Milk Of Magnesia Liq*) 30 ml PO Q6H PRN PRN Reason: DYSPEPSIA Vital Signs - 8 hr 07/15/17 07/15/17 07/15/17 06:00 07:02 08:00 Temperature 99.1 F Pulse Rate 88 87 Respiratory 19 18 21 Rate Blood Pressure 172/88 176/88 (mmHg) O2 Sat by Pulse 97 96 97 Oximetry 07/15/17 07/15/17 07/15/17 08:06 09:32 11:21 Temperature 98.9 F 98.5 F Pulse Rate 87 93 97 Respiratory 22 20 20 Rate Blood Pressure 177/95 159/68 137/80 (mmHg) O2 Sat by Pulse 97 99 98 Oximetry Oxygen Devices in Use Now: None Appearance: Sitting on chair, eating lunch, appears comfortable and in NAD Eyes: No Scleral Icterus, PERRLA Ears/Nose/Mouth/Throat: Clear Oropharnyx, Mucous Membranes Moist Neck: NL Appearance and Movements; NL JVP, Trachea Midline Respiratory: Symmetrical Chest Expansion and Respiratory Effort, Clear to Auscultation Cardiovascular: NL Sounds; No Murmurs; No JVD, RRR Abdominal: NL Sounds; No Tenderness; No Distention Extremities: No Edema, - - 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 Microbiology and Other Data: Microbiology 07/13/17 16:45 Nasal Screen MRSA (PCR)(FERCHO) - Final Nasal Mrsa Not Detected Diagnostic Imaging: . EKG Data: . Assess/Plan/Problems-Billing Assessment: A 76 y/o male who presented to ED with sudden onset of left sided facial droop and weakness, found to have a CVA, s/p tPA, admitted to ICU for close monitoring , with neurological improvement noted, also with underlying uncontrolled and untreated HTN - Patient Problems (1) CVA (cerebral vascular accident) Current Visit: Yes Status: Acute Priority: High Comment: - Neurology consult appreciated - Now s/p tPA, improvement noted, continue neurological checks q4 hrs - Passed swallowing evaluation, resume regular diet - PT/OT starting in AM - Transfered to Tele today - Supportive care - ASA 81 mg and Lipitor 20mg daily started - Per neuro, may start Plavix 75mg tomorrow and continue on it for 1 month after discharge. - He is considering SNF placement for STR depending on how he does with PT (2) Hypertension Current Visit: Yes Status: Acute Comment: - Better controlled now, but still hypertensive in AM - Continue Amlodipine and Lisinopril PO (3) DVT prophylaxis Current Visit: Yes Status: Acute Comment: - SCDs for time being (4) Full code status Current Visit: Yes Status: Acute Status and Disposition: Inpatient. Anticipate discharge when medically stable. Patient is considering short term rehab at SNF upon discharge pending on PT He has a son with Down's syndrome, age 27, very difficult for his to take care of both him and son Will discuss with bilingual social worker would like patient to have as PCP upon discharge since he has known the family for years.
[2017-07-15] MEDS: Atorvastatin* 20 MG TAB PO SCH (16:00)
[2017-07-15] MEDS: Atorvastatin* 80 MG TAB PO SCH (17:35)
[2017-07-16 06:31] LABS: ABS Basophils 0 10^3/ul (0-0.2); ABS Eosinophils 0.2 10^3/ul (0-0.6); ABS Lymphocytes 1.8 10^3/ul (1.0-4.8); ABS Monocytes 1.1 10^3/ul (0-0.8); ABS Neutrophils 5.4 10^3/ul (1.5-7.7); ABS Nucleated RBC 0 10^3/ul; Hematocrit 46 % (42-52); Hemoglobin 15.7 g/dl (14.0-18.0); Lymphocyte % 21.1 % (25-47); Mean Corpuscular HGB Conc 34 g/dl (31-36); Mean Corpuscular Hemoglobin 30 pg (27-31); Mean Corpuscular Volume 88 fL (80-94); Mean Platelet Volume 6.9 um3 (7.4-10.4); Nucleated Red Blood Cells % 0.1; Platelet Count 181 10^3/ul (150-450); Red Blood Count 5.17 10^6/ul (4.0-5.4); Red Cell Distribution Width 14 % (10.5-15); White Blood Count 8.6 10^3/ul (3.5-10.8)
[2017-07-16 06:52] LABS: EGFR Non-African American 58.7 (>60)
[2017-07-16] MEDS: Clopidogrel TAB* 75 MG PO SCH (08:45)
[2017-07-16] MEDS: Lisinopril TAB* 10 MG PO SCH (08:45)
[2017-07-16] MEDS: Aspirin EC TAB* 81 MG TAB.EC PO SCH (08:45)
[2017-07-16] MEDS: amLODIPine TAB* 5 MG PO SCH (08:45)
--- NOTE | 2017-07-16 16:17 | PN ---
Subjective Date of Service: 07/16/17 Interval History: Patient seen and examined. Only complaint is left knee pain which is chronic. Denies headache, paresthesias, fever or chills. No chest pain, no SOB. Family at bedside. Family History: Unchanged from Admission Social History: Unchanged from Admission Past Medical History: Unchanged from Admission Objective Active Medications: Acetaminophen (Tylenol Tab*) 650 mg PO Q6H PRN PRN Reason: FEVER/PAIN Last Admin: 07/15/17 16:00 Dose: 650 mg Amlodipine Besylate (Norvasc Tab*) 10 mg PO DAILY [facility] Last Admin: 07/16/17 08:45 Dose: 10 mg Aspirin (Aspirin Ec Tab*) 81 mg PO DAILY [facility] Last Admin: 07/16/17 08:45 Dose: 81 mg Atorvastatin Calcium (Lipitor*) 80 mg PO 1700 [facility] Last Admin: 07/15/17 17:35 Dose: Not Given Clopidogrel Bisulfate (Plavix Tab*) 75 mg PO DAILY [facility] Last Admin: 07/16/17 08:45 Dose: 75 mg Lisinopril (Prinivil Tab*) 10 mg PO DAILY [facility] Last Admin: 07/16/17 08:45 Dose: 10 mg Magnesium Hydroxide (Milk Of Magnesia Liq*) 30 ml PO Q6H PRN PRN Reason: DYSPEPSIA Multi-Ingredient Liniment/Rub (Rafat Roldan*) 1 applic TOPICAL TID [facility] Vital Signs - 8 hr 07/16/17 07/16/17 11:33 15:23 Temperature 98.8 F 98.3 F Pulse Rate 97 105 Respiratory 16 16 Rate Blood Pressure 143/72 155/75 (mmHg) O2 Sat by Pulse 99 98 Oximetry Oxygen Devices in Use Now: None Appearance: alert, NAD Eyes: No Scleral Icterus, PERRLA Ears/Nose/Mouth/Throat: NL Teeth, Lips, Gums, Mucous Membranes Moist Neck: NL Appearance and Movements; NL JVP, Trachea Midline, No Thyroid Enlargement, Masses Respiratory: Symmetrical Chest Expansion and Respiratory Effort, Clear to Auscultation Cardiovascular: NL Sounds; No Murmurs; No JVD, RRR, No Edema Abdominal: NL Sounds; No Tenderness; No Distention Skin: No Rash or Ulcers Neurological: Alert and Oriented x 3, NL Sensation, NL Gait, NL Muscle Strength and Tone, - - left side facial droop Nutrition: Taking PO's Result Diagrams: 07/16/17 06:00 07/16/17 06:00 Additional Lab and Data: . Microbiology and Other Data: Microbiology 07/13/17 16:45 Nasal Screen MRSA (PCR)(FERCHO) - Final Nasal Mrsa Not Detected Diagnostic Imaging: .Patient Name: ОЛЕГ HOLT Medical Record#: [id number] Ordering Physician: [id number] 1940 Age: 76 Sex: M Location: INTENSIVE CARE UNIT Exam Date: 07/13/171336 ADM Status: ADM IN Order Information: MRI BRAIN W/O Accession Number: [id number] CPT: 04959 HISTORY: Left facial droop and left leg weakness COMPARISONS: None TECHNIQUE: The following sequences were obtained of the head: Sagittal T1- weighted images, axial T2-weighted images, axial FLAIR images, axial susceptibility weighted images, axial T1-weighted images. Additionally, axial diffusion-weighted images were obtained with calculated apparent diffusion coefficients.. FINDINGS: HEMORRHAGE/INFARCT: There is focal increased signal measuring 5 mm at the right thalamus. MASSES/SHIFT: There is no mass or shift. EXTRA-AXIAL SPACES/MENINGES: There are no extra-axial fluid collections. SULCI AND VENTRICLES: There are symmetrical involutional changes bilaterally. CEREBRUM: 5 mm hyperattenuating focus on diffusion-weighted imaging at the right thalamus is consistent with a focal infarction. This corresponds to a focus of increased signal on FLAIR imaging. On T2-weighted imaging there is diffuse periventricular and subcortical white matter increased signal. BRAINSTEM: There are no focal parenchymal abnormalities. CEREBELLUM: There are no focal parenchymal abnormalities. The cerebellar tonsils are normal in size and position. SELLA: The sella is normal. PINEAL: The pineal region is clear. CP ANGLE/TEMPORAL BONES: The labyrinthine structures are grossly normal. VESSELS: Normal flow-voids are noted within the visualized vertebral vasculature. DIFFUSION ABNORMALITIES: There are no diffusion abnormalities. PARANASAL SINUSES/MASTOIDS: There is dependent layering fluid at the left maxillary sinus. ORBITS: The orbits are unremarkable. BONES AND SOFT TISSUE: No bone or soft tissue abnormalities are noted. IMPRESSION: THERE IS EVIDENCE OF A NEW 5 MM FOCAL INFARCTION AT THE RIGHT THALAMUS ON A BACKGROUND OF CHRONIC MICROVASCULAR DISEASE AND INVOLUTIONAL CHANGES. <Electronically signed by Dav Dyson MD in OV> 07/13/172210 Dictated By: Dav Dyson MD Dictated Date/Time: 07/13/172210 Transcribed Date/Time: 07/13/172204 Copy to: 1 of 2 EKG Data: . Assess/Plan/Problems-Billing Assessment: A 76 y/o male who presented to ED with sudden onset of left sided facial droop and weakness, found to have a CVA, s/p tPA, admitted to ICU for close monitoring , with neurological improvement noted, also with underlying uncontrolled and untreated HTN - Patient Problems (1) CVA (cerebral vascular accident) Code(s): I63.9 - CEREBRAL INFARCTION, UNSPECIFIED SNOMED Code(s): 814713718 Comment: - Neurology consult appreciated - S/P tPA on 07/13/17 with improvement of symptoms noted and no bleeding - Contineu neurological checks q4 hrs - No dysphagia - dual antiplatelet therapy for 30 days with plavix and ASA - Optimize lipids with lipitor 20mg daily - PT recommends rehab - (2) CKD (chronic kidney disease) stage 3, GFR 30-59 ml/min Code(s): N18.3 - CHRONIC KIDNEY DISEASE, STAGE 3 (MODERATE) SNOMED Code(s): 617274259 Comment: - bump up in creat again today, continue to monitor - likely r/t longstanding untreated HTN (3) Hypertension Code(s): I10 - ESSENTIAL (PRIMARY) HYPERTENSION SNOMED Code(s): 88999424 Comment: - Off nicardipine drip - Stable on lisinopril and norvasc (4) DVT prophylaxis Code(s): REC0175 - SNOMED Code(s): 174924077 Comment: - SCDs, OOB ad joanne (5) Full code status Code(s): Z78.9 - OTHER SPECIFIED HEALTH STATUS SNOMED Code(s): 452800915 Status and Disposition: DC to STR in AM. Will need follow up with Dr. Womack as an outpatient and Dr. Farrar in 1 month.
--- NOTE | 2017-07-16 16:30 | CONS ---
NEUROLOGY FOLLOWUP NOTE: DATE OF FOLLOWUP: 07/16/17 LOCATION: He is an inpatient in room 441. HOSPITALIST: MINERVA Yoon CHIEF COMPLAINT: Left-sided weakness and clumsiness. INTERVAL HISTORY: Since yesterday, Mr. Lanier feels well. He said he has walked around the nursing unit 2-1/2 times with a walker. He says he would be afraid to fall without it. He is being evaluated or has been evaluated by the [facility] for possible transfer there. He has no new complaints. MEDICATIONS: Reviewed. He is now on: 1. Atorvastatin 80 mg p.o. daily. 2. Aspirin 81 mg p.o. daily. 3. Plavix 75 mg p.o. daily 4. Prinivil 10 mg p.o. daily. 5. Amlodipine 10 mg p.o. daily. PHYSICAL EXAM: He is well nourished and well hydrated. Temperature 98.8, blood pressure most recently 143/72, heart rate in the 90s and regular. Respiratory rate is 16 and oxygen saturation is 99% on room air. Neurological Exam: There is mild flattening of the left nasolabial fold. Speech is clear. Strength is otherwise normal. He has a left pronator drift. He has good resistive strength proximally and distally in the arms otherwise. He has pain with testing about the left knee. He has good strength proximally and distally in the lower extremities, however. [id number] maneuver is clumsy in the left hand and foot taps are very clumsy and slow in the left foot. He has normal coordination on the right. He is alert and oriented and in good spirits. Memory seems intact and language is fluent. DIAGNOSTIC STUDIES/LAB DATA: Today notable for unremarkable CBC. Chemistry profile today notable for a slight bump in his creatinine to 1.2 from 1.05 yesterday. His BUN is up to 25 as well. Glucose is 111 this morning. On the day of admission, his cholesterol was 211, LDL 141. Imaging studies were reviewed in prior notes. 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 He had multiple vascular risk factors and was not addressing any of them, but now they are all being addressed. His blood pressure is under good control and I recommend continuing his current antihypertensive regimen. Recommend dual antiplatelet therapy for 30 days and then switching to antiplatelet monotherapy, probably with Plavix. He is on a high potency statin in an appropriate dose, which will require followup. Presumptively, he will go to a rehab. If he does get discharged, I can see him in my office in followup in about a month to see if any loose ends exist regarding vascular risk factor control and to make sure he has transitioned to antiplatelet monotherapy. [id number]/[facility] #: [id number] UMA
[2017-07-16] MEDS: Atorvastatin* 80 MG TAB PO SCH (16:40)
[2017-07-16] MEDS: Analgesic BALM* 114 GM TOPICAL SCH ×2 (16:40→20:38)
--- NOTE | 2017-07-17 07:48 | ED ---
Fatmata Ocampo Gabriel, scribed for Jose Nuñez MD on 07/13/17 at 1129 . Neurological HPI - HPI Summary HPI Summary: Pt is a 76 years old male BIBA with complaints of left side weakness from 3 falls since yesterday. He notes that he had problem getting up this morning. He took time to answer to the questions. His reports that lately he has developed bad memories. He is having bad memory. - History of Current Complaint Chief Complaint: EDNeurologicalDeficit Stated Complaint: FALL Time Seen by Provider: 07/13/17 10:50 Hx Obtained From: Patient, Family/String Top Sealer Onset/Duration: Still Present Timing: Constant Onset Severity: Moderate Current Severity: Moderate Pain Intensity: 7 Pain Scale Used: 0-10 Numeric - Allergy/Home Medications Allergies/Adverse Reactions: Allergies Allergy/AdvReac Type Severity Reaction Status Date / Time No Known Allergies Allergy Verified 07/13/17 12:28 Home Medications: Home Medications NK [No Home Medications Reported] 07/13/17 [History Confirmed 07/13/17] PMH/Surg Hx/FS Hx/Imm Hx Endocrine/Hematology History: Denies: Hx Coagulopothy, Autoimmune Disease Cardiovascular History: Denies: Hx Coronary Artery Disease, Hx Hypercholesterolemia, Hx Pacemaker/ICD Respiratory History: Denies: Hx Chronic Obstructive Pulmonary Disease (COPD), Hx Cystic Fibrosis GI History: Denies: Hx Hiatal Hernia, Hx Irritable Bowel Infectious Disease History: No Infectious Disease History: Denies: Traveled Outside the [place] in Last 30 Days - Family History Known Family History: Negative: Renal Disease, Respiratory Disease, Seizure Disorder - Social History Lives: With Family Alcohol Use: None Hx Substance Use: No Substance Use Type: Reports: None Hx Tobacco Use: No Smoking Status (MU): Never Smoked Tobacco Review of Systems Constitutional: Other - falls Negative: Fever, Chills Negative: Erythema Negative: Sore Throat Negative: Palpitations, Chest Pain Negative: Shortness Of Breath, Cough Negative: Abdominal Pain, Vomiting, Nausea Negative: dysuria, hematuria Negative: Myalgia, Edema Negative: Rash Neurological: Negative - dizziness, Other - poor memory All Other Systems Reviewed And Are Negative: Yes Physical Exam - Summary Physical Exam Summary: Constitutional: Well-developed, Well-nourished, Alert. (-) Distressed Skin: Warm, Dry HENT: Normocephalic; Atraumatic Eyes: Conjunctiva normal Neck: Musculoskeletal ROM normal neck. (-) JVD, (-) Stridor, (-) Tracheal deviation Cardio: Rhythm regular, rate normal, Heart sounds normal; Intact distal pulses; The pedal pulses are 2+ and symmetric. Radial pulses are 2+ and symmetric. (-) Murmur Pulmonary/Chest wall: Effort normal. (-) Respiratory distress, (-) Wheezes, (-) Rales Abd: Soft, (-) Tenderness, (-) Distension, (-) Guarding, (-) Rebound Musculoskeletal: (-) Edema Lymph: (-) Cervical adenopathy Neuro: Alert, there is left arm drift with pronation. There is left leg drift with hip flexion. Mild left facial droop. Finger to nose ataxia Psych: Mood and affect Normal Triage Information Reviewed: Yes Vital Signs On Initial Exam: Initial Vitals Temp Pulse Resp BP Pulse Ox 99.6 F 113 23 239/124 97 07/13/17 10:50 07/13/17 10:50 07/13/17 10:50 07/13/17 10:50 07/13/17 10:50 Vital Signs Reviewed: Yes Diagnostics - Vital Signs Vital Signs Temp Pulse Resp BP Pulse Ox 07/13/17 10:50 99.6 F 113 23 239/124 97 - Laboratory Result Diagrams: 07/13/17 11:34 07/13/17 11:34 Lab Statement: Any lab studies that have been ordered have been reviewed, and results considered in the medical decision making process. - Radiology CXR Radiology Interpretation Completed By: Radiologist - NO ACTIVE CARDIOPULMONARY DISEASE IS NOTED. ED physician has reviewed this radiology report. - CT CTA Head CT Interpretation Completed By: Radiologist - There is atherosclerosis of the descending thoracic aorta at the level of the aortic arch. Atherosclerosis is noted in the carotid bulb bilaterally. The origin of left vertebral artery is not well demonstrated and a stenosis at the origin of the left vertebral artery cannot BE excluded. No evidence of internal carotid artery stenosis or dissection is noted. Intracranial circulation demonstrates no evidence of aneurysmal dilatation or branch occlusion. ED physician has reviewed this radiology report. - EKG 11:37 Cardiac Rate: NL EKG Rhythm: Sinus Tachycardia - at 100 BPM EKG Interpretation: No STEMI NIH Scale - NIH Scale Level of Consciousness: Alert/Keenly Responsive Ask Patient the Month and His/Her Age: Both Correct Ask Pt to Open/Close Eyes and Discharge Specialist/Release Non-Paretic Hand: Both Correctly Best Gaze (Only Horizontal Eye Movement): Normal Visual Field Testing: No Visual Loss Facial Paresis-Pt to Smile & Close Eyes or Grimace Symmetry: Minor Paralysis Motor Function - Right Arm: No Drift-Holds 10 Seconds Motor Function - Left Arm: Drifts LT 10 seconds Motor Function - Right Leg: No Drift-Holds 10 Seconds Motor Function - Left Leg: Drifts LT 10 seconds Limb Ataxia-Must be out of Proportion to Weakness Present: Present in One Limb Sensory (Use Pinprick to Test Arms/Legs/Trunk/Face): Normal Best Language (Describe Picture, Name Items): No Aphasia Dysarthria (Read Several Words): Normal Extinction and Inattention: No Abnormality Total Score: 4 Re-Evaluation - Re-Evaluation First Eval Re-Evaluation Time: 11:45 Change: Unchanged Comment: There is no neurological change. BP has improved and in 217 systolic. Second Eval Re-Evaluation Time: 12:00 Change: Unchanged Comment: Neurology is at bedside. Fourth Eval Re-Evaluation Time: 12:58 Change: Improved Comment: All deficits have improved and the patients systolic BP was 155. Course/Dx - Course Assessment/Plan: Pt is a 76 years old male BIBA with complaints of left side weakness from 3 falls since yesterday. He notes that he had problem getting up this morning. He took time to answer to the questions. His reports that lately he has developed bad memories. He is having bad memory. Lab results show lactic acid of 2.1. CTA head shows There is atherosclerosis of the descending thoracic aorta at the level of the aortic arch. Atherosclerosis is noted in the carotid bulb bilaterally. The origin of left vertebral artery is not well demonstrated and a stenosis at the origin of the left vertebral artery cannot BE excluded. No evidence of internal carotid artery stenosis or dissection is noted. Intracranial circulation demonstrates no evidence of aneurysmal dilatation or branch occlusion. On re-evaluation at 12:58 the pt's blood pressure systolic decreased to 155. I discussed pt care with Dr. Desai , prep manager, who has accepted the pt for admission. - Diagnoses Provider Diagnoses: CVA (cerebral vascular accident) - Physician Notifications Discussed Care Of Patient With: Eugenio Giselle Time Discussed With Above Provider: 13:11 Instructed by Provider To: Admit As Inpatient - Critical Care Time Critical Care Time: 30-74 min - 45 minutes Discharge - Sign-Out/Discharge Documenting (check all that apply): Discharge/Admit/Transfer - Admit - Discharge Plan Condition: Stable Disposition: ADMITTED TO [facility] Referrals: No Primary Care Phys,NOPCP [Primary Care Provider] - The documentation as recorded by the Fatmata rios Gabriel accurately reflects the service I personally performed and the decisions made by , Jose Nuñez MD.
[2017-07-17] MEDS: amLODIPine TAB* 5 MG PO SCH (09:23)
[2017-07-17] MEDS: Clopidogrel TAB* 75 MG PO SCH (09:24)
[2017-07-17] MEDS: Analgesic BALM* 114 GM TOPICAL SCH (09:24)
[2017-07-17] MEDS: Lisinopril TAB* 10 MG PO SCH (09:24)
[2017-07-17] MEDS: Aspirin EC TAB* 81 MG TAB.EC PO SCH (09:24)
[2017-07-17 11:55] VITALS: BP 183/74
--- NOTE | 2017-07-17 13:23 | DS ---
CC: Valdemar Womack MD * DISCHARGE SUMMARY: DATE OF ADMISSION: 07/13/17 DATE OF DISCHARGE: 07/17/17 PRIMARY CARE PHYSICIAN: Currently none, but he is being referred to Dr. Nidia Womack. ATTENDING FOR THIS ADMISSION: Jj Odom MD * (DICTATED BY SREE GARCIA NP) Dr. Odom is also my attending for today. HOSPITAL COURSE: This is a very pleasant 76-year-old male patient who up to this point had no significant medical history, was brought into the emergency department by his significant other when he started having some gait dysfunction. He described it as his left knee giving out. His significant other called the patient's son and then noticed that he had several falls shortly thereafter and was unable to stand without assistance. The patient came to the emergency department and it was also noted at that time the patient had a left-sided facial droop. The patient received tPA while he was in the emergency department. He also had some issues with high blood pressure for which he received metoprolol and then was started on nicardipine drip. The patient's NIH scale was initially 4 and then down to 1 post tPA. The patient was sent to the ICU for further monitoring under the care of Dr. Eugenio Desai. Initial CTA showed no large vessel occlusion. The patient exhibited no signs of intracranial hemorrhage or other bleeding after receiving his tPA. His nicardipine drip was stopped, he was transitioned to oral medications for his blood pressure and his hypertensive urgency. It was also noted that the patient had some underlying renal disease, which was likely due to his uncontrolled hypertension as he was not receiving care for blood pressure while he was at home. He was seen by Neurology, who agreed with the plan of care. Followup after tPA, neuro checks and had no acute complications after that initial treatment. The patient was transferred from the ICU to [address] [place] [address] where he continued to make some progress. He was seen by Physical Therapy. The patient was still having some gait dysfunction, difficulty ambulating without assistance, but for the most part his symptoms had improved considerably from his initial admission. Dr. Brayden Farrar from the neurology service saw the patient in consultation, recommended dual antiplatelet therapy with aspirin and Plavix, also optimizing with a statin, so he was started on atorvastatin 80 mg daily, baby aspirin 81 mg daily, Plavix 75 mg daily, lisinopril 10 mg daily and amlodipine also 10 mg daily. 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 At this point, Neurology has cleared the patient. He does seem to be making progress. He was accepted at [facility] for additional rehabilitation. DISCHARGE DIAGNOSES: 1. Cerebrovascular accident. 2. Uncontrolled hypertension. 3. Hyperlipidemia. 4. Chronic kidney disease. DISCHARGE MEDICATIONS: As above. FOLLOWUPS: The patient was instructed to follow up with Dr. Garner at [facility]. After he is discharged from [facility], the patient's family expressed the wish for the patient to follow up with Dr. Suresh Guardado as a new patient. He should follow up with Dr. Womack after he is discharged from [facility]. He should also see Dr. Farrar in the office in 1 month for followup and resolution of his symptoms. The patient was seen today. He denies any fever, fatigue or chills. No chest pain. No headache. No dizziness. No shortness of breath, No abdominal pain. No nausea. No vomiting. He does feel weak on the left lower extremity and having some knee pain, responding well to Bengay. PHYSICAL EXAM: The patient is alert in no acute distress. Vital Signs: Blood pressure 159/73, respiratory rate 18, heart rate 92, O2 saturation 98% on room air, temperature is 97.8. HEENT: The patient is atraumatic, primarily normocephalic. He does have a slight facial droop noted on the left side. Extraocular movements are intact. He is PERRLA, nonicteric sclerae. Neck is supple, nontender. No JVD noted. No carotid bruits auscultated. Cardiovascular: S1, S2 present. No murmurs, gallops, or rubs. Rate and rhythm are regular. Lungs are clear bilaterally to auscultation with no wheezing, rhonchi or rales. Abdomen is soft, nontender, nondistended. Positive bowel sounds in all 4 quadrants. is deferred. Musculoskeletal: There is no clubbing, no cyanosis. He has no pedal edema. He has +2 distal pulses palpable. He does have some point tenderness anteriorly over the left knee, primarily inferior to the patella and diffuse across both the medial and lateral regions of the lower portion of the knee. He has gross sensation intact. His restaurant inspector are equal in the upper extremities. Neurologic: No further new focalities are noted. Psychiatric: He is cooperative and appropriate. LABORATORY DATA: WBC 8.6, RBC 5.17, hemoglobin 15.7, hematocrit 46, platelets 181,000. Sodium 139, potassium 4.1, chloride 110, CO2 of 24, BUN 25, creatinine 1.20, GFR 58.7, glucose 111. Lactic acid 0.8, AST 16, ALT 11, alk phos 37, triglycerides 125, cholesterol total 211, LDL is 141, HDL is 44.8, B12 is 478. DISPOSITION: The patient is discharged to [facility] in stable condition. All questions were answered. I discussed extensively with the patient and his son the day prior to discharge what his discharge plan would be, they are in agreement with his plan and followups. SREE GARCIA NP [id number]/[facility] #: [id number] UMA
== END 2017-07-17 12:15 | DRG 62 ==
LOC: ED 10:49 → ICU 13:21 → MEDTELE 07-15 09:00
PROVIDERS: ADMIT Internal Medicine Critical Care Medicine; ATTEND Internal Medicine
DX: I63.9 Cerebral infarction, unspecified (principal); G81.94 Hemiplegia, unspecified affecting left nondominant side; W19.XXXA Unspecified fall, initial encounter; R29.704 NIHSS score 4; E66.9 Obesity, unspecified; I12.9 Hypertensive chronic kidney disease with stage 1 through stage 4 chronic kidney disease, or unspecified chronic kidney disease; N18.3 Chronic kidney disease, stage 3 (moderate); E78.5 Hyperlipidemia, unspecified; K42.9 Umbilical hernia without obstruction or gangrene; I16.0 Hypertensive urgency; G89.29 Other chronic pain; M25.562 Pain in left knee; M19.90 Unspecified osteoarthritis, unspecified site; R29.810 Facial weakness; R47.81 Slurred speech; G31.84 Mild cognitive impairment of uncertain or unknown etiology; Y92.9 Unspecified place or not applicable; Z68.30 Body mass index [BMI] 30.0-30.9, adult; Z87.891 Personal history of nicotine dependence; Z79.82 Long term (current) use of aspirin; Z79.02 Long term (current) use of antithrombotics/antiplatelets
CPT/HCPCS: 36415; 70030; 70450; 70496; 70498; 70551; 71045; 80048; 80053; 80061; 81003; 81015; 82607; 83036; 83605; 84484; 85025; 85027; 85610; 85730; 86850; 86900; 86901; 87086; 87641; 93005; 93306; 99285; A9270-GY; C8929; G8978-GP-CL; G8979-GP-CJ; G8987-GO-CK; G8988-GO-CI; G8989-GO-CI; J2997; J3490; Q9967

== ENCOUNTER 2017-07-17 07:35 | Inpatient (IN) | payer MEDICARE, OTHER ==
[2017-07-17] MEDS ORDERED: Acetaminophen TAB* 325 MG PO PRN (13:15)
[2017-07-17] MEDS ORDERED: Senna TAB PO PRN (13:15)
[2017-07-17] MEDS ORDERED: Magnesium Hydroxide LIQ* 30 ML UDC PO PRN (13:15)
[2017-07-17] MEDS: Heparin VIAL(*) 5000 UNITS/ML VIAL (FIVE THOUSAND) SUBCUT SCH ×2 (15:19→21:12)
[2017-07-17] MEDS: Atorvastatin* 80 MG TAB PO SCH (16:48)
--- NOTE | 2017-07-17 17:56 | HP ---
ADMISSION HISTORY AND PHYSICAL: DATE OF ADMISSION: 07/17/17 REASON FOR ADMISSION: Stroke with left-sided weakness. HISTORY OF PRESENT ILLNESS: Kahlil Lanier is a 76-year-old male. He has a medical history that is not significant, but he has not been to a doctor in 30 years. The patient woke up on the morning of 07/13/17. He felt like his left knee was giving out. He had his girlfriend call his son who came to see the patient. The patient had already fallen at that point. The patient's son brought him to the hospital. He was evaluated by Neurology in the emergency room and was within the 3-hour window. He was given tPA. The patient prior to tPA had a CAT scan of his brain that showed no evidence of acute intracranial process. He had a CTA also done, which did not show evidence of internal carotid artery stenosis or dissection and no evidence of aneurysm. He was given tPA and admitted to the hospital. The patient was started on Plavix and aspirin 48 hours after he received tPA. Followup brain CT again did not show an acute infarct. He did have an MRI of his brain, which showed a new infarct in the right thalamus. The patient was kept on aspirin and Plavix. He was put on Lipitor as well. He was felt to have had multiple vascular risk factors including hypertension and high cholesterol, but none of these have been addressed as he has not been to a doctor. It was felt that he would get aspirin and Plavix for 30 days and then switching to monotherapy likely Plavix alone. He was felt to have physical therapy and occupational therapy needs. He is now being admitted for inpatient rehab so that he might return to independent living. PAST MEDICAL HISTORY: Not significant as mentioned. He had not seen a doctor in 30 years. CURRENT MEDICATIONS: Include: 1. Norvasc. 2. Aspirin. 3. Lipitor. 4. Plavix. 5. Prinivil or lisinopril. 6. Bowel medications. ALLERGIES: No known drug allergies. SOCIAL HISTORY: He is a nonsmoker, nondrinker. Lives with his girlfriend in a trailer in [place]. There are 3 to 4 steps to enter. He is retired. REVIEW OF SYSTEMS: The patient reports no current shortness of breath or chest pain. PHYSICAL EXAMINATION VITAL SIGNS: The patient's temperature is 98.3, blood pressure is 170/80, pulse is 88 and regular, respirations 24. HEENT: His extraocular movements are intact. Tongue is midline. He may have a slight left facial, although his smile appears to be symmetric. NECK: Supple. LUNGS: Sounded clear to auscultation bilaterally. HEART: Heart sounds were regular. S1 and S2 audible. ABDOMEN: Soft and nontender. EXTREMITIES: Showed normal muscle bulk and tone. Peripheral pulses were intact. He does have left knee pain from an old left knee injury going back to high school baseball. NEUROLOGIC: Sensation was intact. Muscle strength was about 4/5 in the left leg and 4+/5 in the left arm. FUNCTIONAL EXAM: He transfers with contact guard to min assist. ASSESSMENT: Right thalamic cerebrovascular accident, status post tPA administration with left-sided weakness. PLAN: We are going to integrate the patient into a comprehensive and therapeutic rehab program. We will have the following goals: 1. Physical Therapy will see the patient. They are going to work on functional transfer training, ambulation training with a walker. 2. Occupational Therapy will see the patient, work on his activities of daily living including toileting and toilet transfers. 3. Continue aspirin, Plavix, and Lipitor for secondary stroke prophylaxis. 4. Heparin for DVT prophylaxis. 5. SSRIs including Prozac are indicated. 6. His bowels will be regulated. 7. Continue Norvasc and lisinopril for hypertension. 8. director of cardiopulmonary services will be closely involved to make sure that any services and equipment the patient requires are in place prior to discharge. 9. Family training as appropriate. 10. Home with appropriate services. ESTIMATED LENGTH OF STAY: 1 week. [id number]/[facility] #: [id number] UMA
[2017-07-17] MEDS: Docusate CAP* 100 MG PO SCH (21:12)
[2017-07-18] MEDS: Heparin VIAL(*) 5000 UNITS/ML VIAL (FIVE THOUSAND) SUBCUT SCH ×3 (05:08→22:25)
[2017-07-18 06:03] LABS: ABS Basophils 0 10^3/ul (0-0.2); ABS Eosinophils 0.2 10^3/ul (0-0.6); ABS Lymphocytes 1.4 10^3/ul (1.0-4.8); ABS Monocytes 0.7 10^3/ul (0-0.8); ABS Neutrophils 4.5 10^3/ul (1.5-7.7); ABS Nucleated RBC 0 10^3/ul; Eosinophil % 2.2 % (0-6); Hematocrit 44 % (42-52); Hemoglobin 15.4 g/dl (14.0-18.0); Lymphocyte % 20.6 % (25-47); Mean Corpuscular HGB Conc 35 g/dl (31-36); Mean Corpuscular Hemoglobin 31 pg (27-31); Mean Corpuscular Volume 89 fL (80-94); Nucleated Red Blood Cells % 0.1; Platelet Count 231 10^3/ul (150-450); Red Blood Count 4.99 10^6/ul (4.0-5.4); Red Cell Distribution Width 13 % (10.5-15); White Blood Count 6.9 10^3/ul (3.5-10.8)
[2017-07-18 06:22] LABS: EGFR Non-African American 59.9 (>60)
[2017-07-18] MEDS: Aspirin EC TAB* 81 MG TAB.EC PO SCH (09:09)
[2017-07-18] MEDS: Clopidogrel TAB* 75 MG PO SCH (09:09)
[2017-07-18] MEDS: Docusate CAP* 100 MG PO SCH ×2 (09:09→20:48)
[2017-07-18] MEDS: amLODIPine TAB* 5 MG PO SCH (09:09)
[2017-07-18] MEDS: Lisinopril TAB* 10 MG PO SCH (09:09)
[2017-07-18] MEDS: Atorvastatin* 80 MG TAB PO SCH (16:33)
[2017-07-18] MEDS: Tamsulosin CAP* 0.4 MG PO SCH (20:48)
--- NOTE | 2017-07-18 21:07 | PN ---
Progress Note Date of Service: 07/18/17 Note: ОЛЕГ HOLT was visited. Therapy notes read and reviewed. Patient has complaints of urinary frequency, often voiding small amounts. Will start Flomax. PVRs vary from 0-400 ml by bladder scan. Given his age, Flomax may be helpful Current Medications: Active Medications Generic Name Dose Route Start Last Admin Trade Name Freq PRN Reason Stop Dose Admin Acetaminophen 650 mg 07/17/17 13:15 Tylenol Tab* PO Q6H PRN FEVER/PAIN Amlodipine Besylate 10 mg 07/18/17 09:00 07/18/17 09:09 Norvasc Tab* PO 10 mg DAILY JIMMY Administration Aspirin 81 mg 07/18/17 09:00 07/18/17 09:09 Aspirin Ec Tab* PO 81 mg DAILY JIMMY Administration Atorvastatin Calcium 80 mg 07/17/17 17:00 07/18/17 16:33 Lipitor* PO 80 mg 1700 JIMMY Administration Clopidogrel Bisulfate 75 mg 07/18/17 09:00 07/18/17 09:09 Plavix Tab* PO 75 mg DAILY JIMMY Administration Docusate Sodium 100 mg 07/17/17 21:00 07/18/17 20:48 Colace Cap* PO 100 mg BID JIMMY Administration Heparin Sodium (Porcine) 5,000 units 07/17/17 14:00 07/18/17 15:42 Heparin Vial(*) SUBCUT 5,000 units Q8HR JIMMY Administration Lisinopril 10 mg 07/18/17 09:00 07/18/17 09:09 Prinivil Tab* PO 10 mg DAILY JIMMY Administration Magnesium Hydroxide 30 ml 07/17/17 13:15 Milk Of Magnesia Liq* PO Q6H PRN CONSTIPATION Senna 2 tab 07/17/17 13:15 Senokot Tab* PO BEDTIME PRN CONSTIPATION Tamsulosin HCl 0.4 mg 07/18/17 21:00 07/18/17 20:48 Flomax Cap* PO 0.4 mg BEDTIME JIMMY Administration Vital Signs: Vital Signs Temp Pulse Resp BP Pulse Ox 98.3 F 87 24 138/66 99 07/18/17 15:44 07/18/17 15:44 07/18/17 15:53 07/18/17 15:44 07/18/17 15:53 Lab Results: Laboratory Results - last 24 hr 07/18/17 07/18/17 05:41 05:41 WBC 6.9 RBC 4.99 Hgb 15.4 Hct 44 MCV 89 MCH 31 MCHC 35 RDW 13 Plt Count 231 MPV 7.0 L Neut % (Auto) 66.2 Lymph % (Auto) 20.6 L [place] % (Auto) 10.4 H Eos % (Auto) 2.2 Baso % (Auto) 0.6 Absolute Neuts (auto) 4.5 Absolute Lymphs (auto) 1.4 Absolute Monos (auto) 0.7 Absolute Eos (auto) 0.2 Absolute Basos (auto) 0 Absolute Nucleated RBC 0 Nucleated RBC % 0.1 Sodium 139 Potassium 4.0 Chloride 108 Carbon Dioxide 25 Anion Gap 6 BUN 25 H Creatinine 1.18 H Est GFR ( Amer) 77.0 Est GFR (Non-Af Amer) 59.9 BUN/Creatinine Ratio 21.2 H Glucose 110 H Calcium 9.4 Total Bilirubin 0.90 AST 14 ALT 17 Alkaline Phosphatase 38 Total Protein 6.6 Albumin 3.5 Globulin 3.1 Albumin/Globulin Ratio 1.1 Exam: LUNGS: clear bilaterally HEART: reg ehythm ABDOMEN: Soft EXTREMITIES: No edema NEUROLOGIC: 4/5 LLE, 4+/5 LUE Assessment/Plan: 1. Right thalamic CVA: S/P tPA administration. PT/OT 2. Urinary Frequency: Probable BPH. Try Flomax 3. DVT Prophylaxis: Heparin S/Q 4. Hypertension: Norvasc/Lisinopril 5. Advanced Directives: Full code 07/18/17 21:13
[2017-07-19] MEDS: Heparin VIAL(*) 5000 UNITS/ML VIAL (FIVE THOUSAND) SUBCUT SCH ×3 (05:52→21:24)
[2017-07-19] MEDS: Aspirin EC TAB* 81 MG TAB.EC PO SCH (09:24)
[2017-07-19] MEDS: amLODIPine TAB* 5 MG PO SCH (09:24)
[2017-07-19] MEDS: Docusate CAP* 100 MG PO SCH ×2 (09:24→21:21)
[2017-07-19] MEDS: Clopidogrel TAB* 75 MG PO SCH (09:24)
[2017-07-19] MEDS: Lisinopril TAB* 10 MG PO SCH (09:24)
--- NOTE | 2017-07-19 16:28 | PN ---
Progress Note Date of Service: 07/19/17 Note: ОЛЕГ HOLT was visited. Therapy notes read and reviewed. He was started on Flomax last night. Frequency may be better. Will try to keep track of voiding amounts Current Medications: Active Medications Generic Name Dose Route Start Last Admin Trade Name Freq PRN Reason Stop Dose Admin Acetaminophen 650 mg 07/17/17 13:15 Tylenol Tab* PO Q6H PRN FEVER/PAIN Amlodipine Besylate 10 mg 07/18/17 09:00 07/19/17 09:24 Norvasc Tab* PO 10 mg DAILY JIMMY Administration Aspirin 81 mg 07/18/17 09:00 07/19/17 09:24 Aspirin Ec Tab* PO 81 mg DAILY JIMMY Administration Atorvastatin Calcium 80 mg 07/17/17 17:00 07/18/17 16:33 Lipitor* PO 80 mg 1700 JIMMY Administration Clopidogrel Bisulfate 75 mg 07/18/17 09:00 07/19/17 09:24 Plavix Tab* PO 75 mg DAILY JIMMY Administration Docusate Sodium 100 mg 07/17/17 21:00 07/19/17 09:24 Colace Cap* PO Not Given BID JIMMY Heparin Sodium (Porcine) 5,000 units 07/17/17 14:00 07/19/17 13:02 Heparin Vial(*) SUBCUT 5,000 units Q8HR JIMMY Administration Lisinopril 10 mg 07/18/17 09:00 07/19/17 09:24 Prinivil Tab* PO 10 mg DAILY JIMMY Administration Magnesium Hydroxide 30 ml 07/17/17 13:15 Milk Of Magnesia Liq* PO Q6H PRN CONSTIPATION Senna 2 tab 07/17/17 13:15 Senokot Tab* PO BEDTIME PRN CONSTIPATION Tamsulosin HCl 0.4 mg 07/18/17 21:00 07/18/17 20:48 Flomax Cap* PO 0.4 mg BEDTIME JIMMY Administration Vital Signs: Vital Signs Temp Pulse Resp BP Pulse Ox 98.3 F 87 22 129/57 99 07/19/17 15:53 07/19/17 15:53 07/19/17 15:53 07/19/17 15:53 07/19/17 16:15 Exam: LUNGS: clear bilaterally HEART: reg ehythm ABDOMEN: Soft EXTREMITIES: No edema NEUROLOGIC: 4+/5 LLE, 4+/5 LUE Assessment/Plan: 1. Right thalamic CVA: S/P tPA administration. PT/OT 2. Urinary Frequency: Probable BPH. Try Flomax 3. DVT Prophylaxis: Heparin S/Q 4. Hypertension: Norvasc/Lisinopril 5. Advanced Directives: Full code 07/19/17 16:28
[2017-07-19] MEDS: Atorvastatin* 80 MG TAB PO SCH (16:45)
[2017-07-19] MEDS: Tamsulosin CAP* 0.4 MG PO SCH (21:24)
[2017-07-20] MEDS: Heparin VIAL(*) 5000 UNITS/ML VIAL (FIVE THOUSAND) SUBCUT SCH ×3 (05:34→21:27)
[2017-07-20] MEDS: Docusate CAP* 100 MG PO SCH ×3 (10:13→21:25)
[2017-07-20] MEDS: Clopidogrel TAB* 75 MG PO SCH (10:13)
[2017-07-20] MEDS: amLODIPine TAB* 5 MG PO SCH (10:13)
[2017-07-20] MEDS: Aspirin EC TAB* 81 MG TAB.EC PO SCH (10:14)
[2017-07-20] MEDS: Lisinopril TAB* 10 MG PO SCH (10:14)
--- NOTE | 2017-07-20 12:42 | PMRUTEAM ---
PMRU: Team Meeting Current Status: Nursing: Current Status Skin Deviations [No deviation] Other Skin Deviations [Right Arm] Bruise Skin Deviation Description [No - deviation] Physical Therapy: Current Status Bed Mobility Assistance Supervision Transfer Moblility Assistance Contact Guard Assist Transfer/Bed Mobility Rolling Walker Recommended Devices Ambulation Assistance Contact Guard Assist Ambulation Assistive Devices Rolling Walker Number of Feet Patient 2x175' Ambulated Stairs Assistance Contact Guard Assist Stairs Recommended Devices Two Rails Number of Stairs 2x3, 2x2 Objective Comments pt able to ascend/descend stairs with step-to pattern initially, progressing to step through pattern Occupational Therapy: Current Status Upper Body Dressing Supervision Lower Body Dressing Min Assist Bathing Min Assist Toileting Supervision Toilet Transfer Supervision Shower Transfer Supervision Eating Independent Instrumental ADL Pt sits at table to engage in 45 minute IADL tasks of making fruit kabobs. 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 He then stabilizes half of a honeydew, scooping out the center seeds with his RUE. Pt uses his problem solving skills to cut the half into slices and then into edible bites with 1 cue using BUE without notable difficulty. Pt then picks up pieces of honeydew, watermelon, strawberries and canteloupe along with grapes using his LUE to place on a skewer which is held in his right hand. Pt does this without evidence of a tremor and does not drop any pieces. He completes 10+ kabobs without c/o difficulty. Pt then stands with S and carries the box of skewers back to the cabinets while ambulating with his walker with S and FWW. Rec Therapy: Current Status Summary of Assessment and Pt. was open to conversation - engaged throughout Clinical Impression with a sense of humor. Pt. identified with interests and some involvement in them prior to admission. Pt. states he is a "loner" and stays home most of the time. Pt. was open to continued leisure visits while on the unit. Treatment Goals Pt. will engage in leisure activities while on the unit. Treatment Plan Provide RT services and encourage involvement. Social Work: Current Status Discharge Plan return home with home care svs and family support Potential for Family Training pt's is involved and supportive Anticipated Discharge Home Destination Discharge With home care svs and family support Goals: Physical Therapy: Initial Goals Bed Mobility Assistance Independent Transfer Mobility Assistance Independent Transfer/Bed Mobility Rolling Walker Recommended Devices Ambulation Independent Ambulation Recommended Devices Rolling Walker Ambulation Distance 150 Stairs Assistance Independent Stair Recommended Devices Two Rails Number of Stairs 5 Home Exercise Program Independent Assistance Physical Therapy: Updated Goals Transfer/Bed Mobility Rolling Walker Recommended Devices Occupational Therapy: Initial Goals Goals to be Completed in (Days 7-10 days ) Upper Body Bathing Routine Modified Independent with Lower Body Bathing Routine Modified Independent with Upper Body Dressing Routine Independent Lower Body Dressing Routine Modified Independent with Toilet Hygeine and Clothing Modified Independent with Management Routine Toilet Transfer Routine Modified Independent with Tub Transfer Routine Modified Independent with Functional Transfers for ADL Modified Independent with Grooming Routine Independent Feeding Routine Modified Independent with Nutrition: Goals Intervention Goals 1. Pt will tolerate least restrictive diet texture without s/sx difficulty chewing 2. Intake will be adequate to meet needs without contributing to excess wt gain 3. Pt will establish regular bowel pattern without diarrhea or constipation Social Work: Goals Discharge Plan return home with home care svs and family support Potential for Family Training pt's is involved and supportive Anticipated Discharge Home Destination Discharge With home care svs and family support Care Plan: Care Plan ADL's - Improve/Maintain Start: 07/17/17 16:00 Freq: [id number]@1200 Status: Active Target: Protocol: Activity Type Activity Date Activity User E-Sign Co-Sign Detail Recorded Client Recorded Date Recorded By Document 07/20/17 11:48 [id number] [id number] 07/20/17 11:48 [id number] 07/20/17 11:48 PMRU Outcome: ADL's/ADL Transfers Orders/Interventions Occupational Therapy Evaluation & Treatment Device Yes Patient to receive OT 5x/wk for 60-120 Therex min/day Self Care Management Group Therapy Neuromuscular ReEducation UE/LE ADL's with Assist Yes ADL Transfers with Assist Yes Toileting: Transfers,Clothing Management Yes ,Hygeine w/Assist Light Kitchen/Laundry w/Assist Yes Progression Toward Outcome/Goals Progressing Outcome/Goals Met Pt making gains with LUE function, L neglect (100% on cancellation worksheet and did not run into anything on the L today) and with dynamic standing balance. He will meet OT goals by early next week. Cardiovascular- Improve/Maintain Start: 07/17/17 18:07 Freq: DAILY@1200 Status: Active Target: Protocol: Activity Type Activity Date Activity User E-Sign Co-Sign Detail Recorded Client Recorded Date Recorded By Document 07/20/17 00:51 [id number] 07/20/17 00:51 [id number] 07/20/17 00:51 PMRU Outcome: Cardiovascular Vital Signs q Shift for 48hrs Then BID Yes Daily Weight Ordered No Current Cardiovascular Outcome/Goal Maintain/ Achieve Baseline HR, BP , Perfusion Maintain/ Improve Perfusion Maintain/ Achieve Hemodynamic Stability Progression Toward Outcome/Goal Progressing Discharge Planning - Improve/Maintain Start: 07/17/17 18:07 Freq: DAILY@1200 Status: Active Target: Protocol: Activity Type Activity Date Activity User E-Sign Co-Sign Detail Recorded Client Recorded Date Recorded By Document 07/19/17 00:25 [id number] [id number] 07/19/17 00:25 [id number] 07/19/17 00:25 PMRU Outcome: Discharge Planning Update Patient Family No Outcome/Goals Demonstrates Understanding of Discharge Plan Progression Toward Outcome/Goals Progressing Mobility- Improve/Maintain Start: 07/17/17 15:56 Freq: DAILY@1200 Status: Active Target: Protocol: Activity Type Activity Date Activity User E-Sign Co-Sign Detail Recorded Client Recorded Date Recorded By Document 07/19/17 16:33 [id number] 07/19/17 16:33 [id number] 07/19/17 16:33 PMRU Outcome: Mobility Physical Therapy Evaluation and Yes Treatment Activity OOB with Assistance Yes Device Yes: FWW Assistance Yes: min A at gait belt Patient to be seen 5x/wk for 60-120 min/ Therex day for: Mobility Training Gait Training W/C Mobility Balance Outcome/Goals Maintain/ Achieve Baseline Mobility Status Improve Mobility Status Demonstrates Proper Use of Assistive Devices Free from Complications of Immobility Progression Toward Outcome/Goals Progressing Bed Mobility Yes: Ind Transfers Yes: Ind with walker Gait x ft Yes: Ind with walker x150' Up/Down Stairs Yes: Sup x5 steps with 2 rails With HEP Yes Neurological- Improve/Maintain Start: 07/17/17 18:07 Freq: DAILY@1200 Status: Active Target: Protocol: Activity Type Activity Date Activity User E-Sign Co-Sign Detail Recorded Client Recorded Date Recorded By Document 07/20/17 00:51 [id number] 07/20/17 00:51 [id number] 07/20/17 00:51 PMRU Outcome: Neurological Weakness/Aphasia Weakness Left Side Outcome/Goals Improve Neurological Status Maintain/ Improve Strength/ROM Progression Toward Outcome/Goals Progressing Safety- Improve/Maintain Start: 07/17/17 18:07 Freq: DAILY@1200 Status: Active Target: Protocol: Activity Type Activity Date Activity User E-Sign Co-Sign Detail Recorded Client Recorded Date Recorded By Document 07/20/17 00:51 [id number] 07/20/17 00:51 [id number] 07/20/17 00:51 PMRU Outcome: Safety Outcome/Goals Remain Free of Injury or Harm Cooperates with Safety Measures for Least Restrictive Environment Progression Toward Outcome/Goals Progressing Outcome/Goals Met Comment PA in place Medicine Note: Length of Stay: 4 days Anticipated Discharge Destination: Home Tentative Discharge Date: 07/24/17 Discharged to: Home
[2017-07-20] MEDS: Atorvastatin* 80 MG TAB PO SCH (16:01)
--- NOTE | 2017-07-20 16:28 | PN ---
Progress Note Date of Service: 07/20/17 Note: ОЛЕГ HOLT was visited. Therapy notes read and reviewed.He was discussed in interdisciplinary plan of care rounds. He urinary frequency is better on Flomax. Walking well. Current Medications: Active Medications Generic Name Dose Route Start Last Admin Trade Name Freq PRN Reason Stop Dose Admin Acetaminophen 650 mg 07/17/17 13:15 Tylenol Tab* PO Q6H PRN FEVER/PAIN Amlodipine Besylate 10 mg 07/18/17 09:00 07/20/17 10:13 Norvasc Tab* PO 10 mg DAILY JIMMY Administration Aspirin 81 mg 07/18/17 09:00 07/20/17 10:14 Aspirin Ec Tab* PO 81 mg DAILY JIMMY Administration Atorvastatin Calcium 80 mg 07/17/17 17:00 07/20/17 16:01 Lipitor* PO 80 mg 1700 JIMMY Administration Clopidogrel Bisulfate 75 mg 07/18/17 09:00 07/20/17 10:13 Plavix Tab* PO 75 mg DAILY JIMMY Administration Docusate Sodium 100 mg 07/17/17 21:00 07/20/17 10:14 Colace Cap* PO Not Given BID JIMMY Heparin Sodium (Porcine) 5,000 units 07/17/17 14:00 07/20/17 14:25 Heparin Vial(*) SUBCUT 5,000 units Q8HR JIMMY Administration Lisinopril 10 mg 07/18/17 09:00 07/20/17 10:14 Prinivil Tab* PO 10 mg DAILY JIMMY Administration Magnesium Hydroxide 30 ml 07/17/17 13:15 Milk Of Magnesia Liq* PO Q6H PRN CONSTIPATION Senna 2 tab 07/17/17 13:15 Senokot Tab* PO BEDTIME PRN CONSTIPATION Tamsulosin HCl 0.4 mg 07/18/17 21:00 07/19/17 21:24 Flomax Cap* PO 0.4 mg BEDTIME JIMMY Administration Vital Signs: Vital Signs Temp Pulse Resp BP Pulse Ox 98.1 F 80 18 144/61 100 07/20/17 15:30 07/20/17 15:30 07/20/17 16:05 07/20/17 15:30 07/20/17 16:05 Exam: LUNGS: clear bilaterally HEART: reg ehythm ABDOMEN: Soft EXTREMITIES: No edema NEUROLOGIC: 4+/5 LLE, 4+/5 LUE Assessment/Plan: 1. Right thalamic CVA: S/P tPA administration. PT/OT 2. Urinary Frequency: Probable BPH. Continue Flomax 3. DVT Prophylaxis: Heparin S/Q 4. Hypertension: Norvasc/Lisinopril 5. Advanced Directives: Full code 07/20/17 16:28
[2017-07-20] MEDS: Tamsulosin CAP* 0.4 MG PO SCH (21:27)
[2017-07-21] MEDS: Heparin VIAL(*) 5000 UNITS/ML VIAL (FIVE THOUSAND) SUBCUT SCH ×3 (05:59→20:50)
[2017-07-21] MEDS: Lisinopril TAB* 10 MG PO SCH (07:38)
[2017-07-21] MEDS: amLODIPine TAB* 5 MG PO SCH (07:38)
[2017-07-21] MEDS: Clopidogrel TAB* 75 MG PO SCH (07:38)
[2017-07-21] MEDS: Aspirin EC TAB* 81 MG TAB.EC PO SCH (07:38)
[2017-07-21] MEDS: Docusate CAP* 100 MG PO SCH ×2 (07:38→20:49)
--- NOTE | 2017-07-21 16:26 | PN ---
Progress Note Date of Service: 07/21/17 Note: ОЛЕГ Seng NARAKERRIE was visited. Therapy notes read and reviewed. Seems to be voiding better. Otherwise no complaints Current Medications: Active Medications Generic Name Dose Route Start Last Admin Trade Name Freq PRN Reason Stop Dose Admin Acetaminophen 650 mg 07/17/17 13:15 Tylenol Tab* PO Q6H PRN FEVER/PAIN Amlodipine Besylate 10 mg 07/18/17 09:00 07/21/17 07:38 Norvasc Tab* PO 10 mg DAILY JIMMY Administration Aspirin 81 mg 07/18/17 09:00 07/21/17 07:38 Aspirin Ec Tab* PO 81 mg DAILY JIMMY Administration Atorvastatin Calcium 80 mg 07/17/17 17:00 07/20/17 16:01 Lipitor* PO 80 mg 1700 JIMYM Administration Clopidogrel Bisulfate 75 mg 07/18/17 09:00 07/21/17 07:38 Plavix Tab* PO 75 mg DAILY JIMMY Administration Docusate Sodium 100 mg 07/17/17 21:00 07/21/17 07:38 Colace Cap* PO Not Given BID JIMMY Heparin Sodium (Porcine) 5,000 units 07/17/17 14:00 07/21/17 13:14 Heparin Vial(*) SUBCUT 5,000 units Q8HR JIMMY Administration Lisinopril 10 mg 07/18/17 09:00 07/21/17 07:38 Prinivil Tab* PO 10 mg DAILY JIMMY Administration Magnesium Hydroxide 30 ml 07/17/17 13:15 Milk Of Magnesia Liq* PO Q6H PRN CONSTIPATION Senna 2 tab 07/17/17 13:15 Senokot Tab* PO BEDTIME PRN CONSTIPATION Tamsulosin HCl 0.4 mg 07/18/17 21:00 07/20/17 21:27 Flomax Cap* PO 0.4 mg BEDTIME JIMMY Administration Vital Signs: Vital Signs Temp Pulse Resp BP Pulse Ox 98.2 F 79 20 142/62 99 07/21/17 15:35 07/21/17 15:35 07/21/17 15:35 07/21/17 15:35 07/21/17 15:35 Exam: LUNGS: clear bilaterally HEART: reg ehythm ABDOMEN: Soft EXTREMITIES: No edema NEUROLOGIC: 4+/5 LLE, 4+/5 LUE Assessment/Plan: 1. Right thalamic CVA: S/P tPA administration. PT/OT 2. Urinary Frequency: Probable BPH. Continue Flomax 3. DVT Prophylaxis: Heparin S/Q 4. Hypertension: Norvasc/Lisinopril 5. Advanced Directives: Full code 07/21/17 16:26
[2017-07-21] MEDS: Atorvastatin* 80 MG TAB PO SCH (16:58)
[2017-07-21] MEDS: Tamsulosin CAP* 0.4 MG PO SCH (20:50)
[2017-07-22] MEDS: Heparin VIAL(*) 5000 UNITS/ML VIAL (FIVE THOUSAND) SUBCUT SCH ×3 (05:06→20:25)
[2017-07-22] MEDS: Docusate CAP* 100 MG PO SCH ×2 (07:52→20:25)
[2017-07-22] MEDS: amLODIPine TAB* 5 MG PO SCH (07:55)
[2017-07-22] MEDS: Clopidogrel TAB* 75 MG PO SCH (07:55)
[2017-07-22] MEDS: Lisinopril TAB* 10 MG PO SCH (07:55)
[2017-07-22] MEDS: Aspirin EC TAB* 81 MG TAB.EC PO SCH (07:55)
--- NOTE | 2017-07-22 15:05 | PN ---
Progress Note Date of Service: 07/22/17 Note: ОЛЕГ HOLT was visited. Nursing notes read and reviewed. He has no complaints today. Resting quietly Current Medications: Active Medications Generic Name Dose Route Start Last Admin Trade Name Freq PRN Reason Stop Dose Admin Acetaminophen 650 mg 07/17/17 13:15 Tylenol Tab* PO Q6H PRN FEVER/PAIN Amlodipine Besylate 10 mg 07/18/17 09:00 07/22/17 07:55 Norvasc Tab* PO 10 mg DAILY JIMMY Administration Aspirin 81 mg 07/18/17 09:00 07/22/17 07:55 Aspirin Ec Tab* PO 81 mg DAILY JIMMY Administration Atorvastatin Calcium 80 mg 07/17/17 17:00 07/21/17 16:58 Lipitor* PO 80 mg 1700 JIMMY Administration Clopidogrel Bisulfate 75 mg 07/18/17 09:00 07/22/17 07:55 Plavix Tab* PO 75 mg DAILY JIMMY Administration Docusate Sodium 100 mg 07/17/17 21:00 07/22/17 07:52 Colace Cap* PO Not Given BID JIMMY Heparin Sodium (Porcine) 5,000 units 07/17/17 14:00 07/22/17 13:27 Heparin Vial(*) SUBCUT 5,000 units Q8HR JIMMY Administration Lisinopril 10 mg 07/18/17 09:00 07/22/17 07:55 Prinivil Tab* PO 10 mg DAILY JIMMY Administration Magnesium Hydroxide 30 ml 07/17/17 13:15 Milk Of Magnesia Liq* PO Q6H PRN CONSTIPATION Senna 2 tab 07/17/17 13:15 Senokot Tab* PO BEDTIME PRN CONSTIPATION Tamsulosin HCl 0.4 mg 07/18/17 21:00 07/21/17 20:50 Flomax Cap* PO 0.4 mg BEDTIME JIMMY Administration Vital Signs: Vital Signs Temp Pulse Resp BP Pulse Ox 98.4 F 77 18 127/49 97 07/22/17 05:06 07/22/17 05:06 07/22/17 05:06 07/22/17 05:06 07/22/17 08:00 Exam: LUNGS: clear bilaterally HEART: reg ehythm ABDOMEN: Soft EXTREMITIES: No edema NEUROLOGIC: 4+/5 LLE, 4+/5 LUE Assessment/Plan: 1. Right thalamic CVA: S/P tPA administration. PT/OT 2. Urinary Frequency: Probable BPH. Continue Flomax 3. DVT Prophylaxis: Heparin S/Q 4. Hypertension: Norvasc/Lisinopril 5. Advanced Directives: Full code 07/22/17 15:08
[2017-07-22] MEDS: Atorvastatin* 80 MG TAB PO SCH (16:48)
[2017-07-22] MEDS: Tamsulosin CAP* 0.4 MG PO SCH (20:25)
[2017-07-23] MEDS: Heparin VIAL(*) 5000 UNITS/ML VIAL (FIVE THOUSAND) SUBCUT SCH ×3 (05:23→20:56)
[2017-07-23] MEDS: amLODIPine TAB* 5 MG PO SCH (08:19)
[2017-07-23] MEDS: Aspirin EC TAB* 81 MG TAB.EC PO SCH (08:19)
[2017-07-23] MEDS: Lisinopril TAB* 10 MG PO SCH (08:19)
[2017-07-23] MEDS: Clopidogrel TAB* 75 MG PO SCH (08:19)
[2017-07-23] MEDS: Docusate CAP* 100 MG PO SCH ×2 (08:20→20:57)
--- NOTE | 2017-07-23 16:54 | PN ---
Progress Note Date of Service: 07/23/17 Note: ОЛЕГ HOLT was visited. Therapy notes read and reviewed. Walks pretty well. Ready for discharge in am. He will be on dual anti-platelet therapy for a month after his stroke, then Plavix alone Current Medications: Active Medications Generic Name Dose Route Start Last Admin Trade Name Freq PRN Reason Stop Dose Admin Acetaminophen 650 mg 07/17/17 13:15 Tylenol Tab* PO Q6H PRN FEVER/PAIN Amlodipine Besylate 10 mg 07/18/17 09:00 07/23/17 08:19 Norvasc Tab* PO 10 mg DAILY JIMMY Administration Aspirin 81 mg 07/18/17 09:00 07/23/17 08:19 Aspirin Ec Tab* PO 81 mg DAILY JIMMY Administration Atorvastatin Calcium 80 mg 07/17/17 17:00 07/22/17 16:48 Lipitor* PO 80 mg 1700 JIMMY Administration Clopidogrel Bisulfate 75 mg 07/18/17 09:00 07/23/17 08:19 Plavix Tab* PO 75 mg DAILY JIMMY Administration Docusate Sodium 100 mg 07/17/17 21:00 07/23/17 08:20 Colace Cap* PO Not Given BID JIMMY Heparin Sodium (Porcine) 5,000 units 07/17/17 14:00 07/23/17 14:24 Heparin Vial(*) SUBCUT 5,000 units Q8HR JIMMY Administration Lisinopril 10 mg 07/18/17 09:00 07/23/17 08:19 Prinivil Tab* PO 10 mg DAILY JIMMY Administration Magnesium Hydroxide 30 ml 07/17/17 13:15 Milk Of Magnesia Liq* PO Q6H PRN CONSTIPATION Senna 2 tab 07/17/17 13:15 Senokot Tab* PO BEDTIME PRN CONSTIPATION Tamsulosin HCl 0.4 mg 07/18/17 21:00 07/22/17 20:25 Flomax Cap* PO 0.4 mg BEDTIME JIMMY Administration Vital Signs: Vital Signs Temp Pulse Resp BP Pulse Ox 97.8 F 77 16 101/73 100 07/23/17 15:55 07/23/17 15:55 07/23/17 15:55 07/23/17 15:55 07/23/17 15:55 Exam: LUNGS: clear bilaterally HEART: reg ehythm ABDOMEN: Soft EXTREMITIES: No edema NEUROLOGIC: 4+/5 LLE, 4+/5 LUE Assessment/Plan: 1. Right thalamic CVA: S/P tPA administration. PT/OT 2. Urinary Frequency: Probable BPH. Continue Flomax 3. DVT Prophylaxis: Heparin S/Q 4. Hypertension: Norvasc/Lisinopril 5. Advanced Directives: Full code 07/23/17 16:54
[2017-07-23] MEDS: Atorvastatin* 80 MG TAB PO SCH (17:08)
[2017-07-23] MEDS: Tamsulosin CAP* 0.4 MG PO SCH (20:56)
[2017-07-24] MEDS: Heparin VIAL(*) 5000 UNITS/ML VIAL (FIVE THOUSAND) SUBCUT SCH (04:49)
[2017-07-24 06:11] VITALS: BP 148/63
[2017-07-24] MEDS: Lisinopril TAB* 10 MG PO SCH (09:18)
[2017-07-24] MEDS: Aspirin EC TAB* 81 MG TAB.EC PO SCH (09:18)
[2017-07-24] MEDS: Clopidogrel TAB* 75 MG PO SCH (09:18)
[2017-07-24] MEDS: Docusate CAP* 100 MG PO SCH (09:19)
[2017-07-24] MEDS: amLODIPine TAB* 5 MG PO SCH (09:19)
--- NOTE | 2017-07-25 08:35 | DS ---
CC: Dr. Suresh Guardado DISCHARGE SUMMARY: DATE OF ADMISSION: 07/17/17 DATE OF DISCHARGE: 07/24/17 DISCHARGE DIAGNOSES: 1. 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 2. Benign prostatic hypertrophy. 3. Hypertension. HISTORY OF PRESENT ILLNESS AND HOSPITAL COURSE: For complete history of the events leading up to his rehab stay, please see the history and physical dictated by me on 07/17/17. While on the rehab unit , the patient was maintained on a baby aspirin and Plavix for secondary stroke prevention. He is to remain on this combination for 30 days past his stroke or until 08/12/17. At that time, he will just be taking Plavix 75 mg daily. The patient's blood pressure was in good control using both Norvasc a nd lisinopril. He was also given Lipitor. The patient was started on Flomax for symptoms of benign prostatic hypertrophy. At the time of admission, he was having trouble voiding and had a lot of trou ble with urinary frequency. He was voiding only small amounts. After he was given Flomax, his urina ry volumes improved and urinary frequency decreased. Followup labs including a PSA should be as an o utpatient. The patient was seen by both Physical and Occupational Therapy and made good gains with both discipli hudson. With physical therapy at the time of admission, the patient required min assist to transfer, he was able to ambulate 40 feet with moderate amount of assistance. With occupational therapy at the t mary kay of admission, the patient required min assist for upper body dressing, min assist for lower body dressing, min assist for toileting and min assist for toilet transfers. By the time of discharge, th e patient was independent with activities of daily living. He was independent in transfers, he was i ndependent ambulating with a front wheel walker 300 feet. The patient was discharged home on 8. DISCHARGE DIET: Regular. DISCHARGE MEDICATIONS: 1. Norvasc 10 mg daily. 2. Lipitor 80 mg daily. 3. Plavix 75 mg daily. 4. Aspirin 81 mg daily. 5. Lisinopril 10 mg daily. 6. Flomax 0.4 mg at bedtime. SERVICES AFTER DISCHARGE: Through visiting nurse service, he will have home nursing, home physical t herapy and a home health aide. Follow up with Dr. Suresh Guardado his new primary care doctor in [address] to [address] Brayden Farrar in 4 to 6 weeks. [id number]/[facility] #: [id number]
== END 2017-07-24 11:22 | disposition home health service (06) | DRG 57 ==
LOC: PMRU 12:15
PROVIDERS: ADMIT Physical Medicine & Rehabilitation; ATTEND Physical Medicine & Rehabilitation
PROC: F07Z5ZZ Bed Mobility Treatment (ICD-10-PCS; principal; 2017-07-17)
PROC: F07Z9ZZ Gait Training/Functional Ambulation Treatment (ICD-10-PCS; 2017-07-17)
PROC: F07Z8ZZ Transfer Training Treatment (ICD-10-PCS; 2017-07-17)
PROC: F08Z0ZZ Bathing/Showering Techniques Treatment (ICD-10-PCS; 2017-07-17)
PROC: F08Z1ZZ Dressing Techniques Treatment (ICD-10-PCS; 2017-07-17)
PROC: F08Z3ZZ Feeding/Eating Treatment (ICD-10-PCS; 2017-07-17)
DX: I69.354 Hemiplegia and hemiparesis following cerebral infarction affecting left non-dominant side (principal); I10 Essential (primary) hypertension; N40.1 Benign prostatic hyperplasia with lower urinary tract symptoms; R35.0 Frequency of micturition; Z79.02 Long term (current) use of antithrombotics/antiplatelets; Z79.82 Long term (current) use of aspirin; Z79.899 Other long term (current) drug therapy; E78.00 Pure hypercholesterolemia, unspecified
CPT/HCPCS: 36415; 80053; 85025; A9270-GY; J1644